=== PATIENT | female | born 1945 | race African-American/Black ===

== ENCOUNTER 2016-10-14 06:17 | Inpatient (IN) | payer MEDICARE, MEDICAID ==
[2016-10-14] MEDS ORDERED: ASPIRIN PO ONE (06:26)
[2016-10-14] MEDS ORDERED: NITROSTAT SL PRN ×2 (06:26→10:53)
[2016-10-14] MEDS ORDERED: LASIX IVP ONE (06:26)
--- NOTE | 2016-10-14 06:30 | DR.CP ---
HPI - Time Seen Time seen: 06:27 - Complaint Chief Complaint Doctor Comments: Patient complains of xiphoid chest pain onset yesterday at 7am then went away to come back this morning. Patient is complaining of xiphoid chest pain with SOB and swelling of her leg. Patient states she had problems with her her when she was in her forties when she had heart problems. States she use e-cigarettes one daily. She is a patient of Dr. Ramirez. She denies nausea, vomiting, cold or cough. States she has had a nitroglycerin x1 today. - Reviewed Nurses Notes Review: Yes - Source History Provided: Patient, EMS - Mode of Arrival Mode of Arrival: EMS - Timing Came on: Gradually Pain: Present Now - Duration Duration: Constant How lon Duration: Days - Location Location of Chest Pain: Chest Chest Pain Radiation Location: None - Context Onset: At rest Cardiac Risk Factors: HTN PE Risk Factors: None History of: Similar pain in the past, [place] Prehospital Care: [facility] - Quality Quality: Sharp - Severity Severity: Moderate - Modifying Factors Worsens: Nothing Impoves: Nothing - Associated Signs and Symptoms Associated Signs and Symptoms: Shortness of Breath, Calf Pain/Swelling PMH - PMH Past Medical History: Arthritis, COPD, CVA, Dyslipidemia, GERD, Hypertension, [place] , Renal Disease Past Surgical History: Yes Surgical History: Ortho Surgery - Family History Family Medical History: Diabetes Mellitus, Cancer, [place], Hypertension - Social History Do you use any recreational Drugs:: No ROS - Review of Systems Constitutional: No Symptoms Reported. negative: See HPI, Chills, Diaphoresis, Fever, Malaise, Weakness, Irritable, Fatigue, Loss of Appetite, Other Eyes: No Symptoms Reported ENTM: No Symptoms Reported Respiratoy: No Symptoms Reported, Non-Productive Cough, Short of Breath Cardiovascular: Chest Pain, Edema. negative: No Symptoms Reported, See HPI, Palpitations, Syncope, Cyanosis, Skin Mottling, Other Gastrointestinal/Abdominal: No Symptoms Reported. negative: See HPI, Abdominal Pain, Constipation, Diarrhea, Nausea, Vomiting, Food Intolerance, Other Genitourinary: No Symptoms Reported. negative: See HPI, Discharge, Dysuria, Frequency, Hematuria, Pain, Bleeding, Other Neurological: No Symptoms Reported, Problems Walking (right AKA). negative: See HPI, Anxiety, Depressed, Emotional Problems, Headache, Numbness, Paresthesia , Pre-existing Deficit, Seizure, Tingling, Tremors, Weakness, Dizziness, Speech Problem, Other Musculoskeletal: No Symptoms Reported Integumentary: No Symptoms Reported Hematologic/Lymphatic: No Symptoms Reported. negative: See HPI, Anemia, Blood Clots, Easy Bleeding, Easy Bruising, Swollen Glands, Lymphadenopathy, Other Endocrine: No Symptoms Reported Psychiatric: No Symptoms Reported PE - Vitals Vitals: Temperature 98.7 F Pulse Rate [Apical] 86 Pulse Rate 87 Respiratory Rate 22 Blood Pressure [Left Arm] 177/71 Blood Pressure [Right Arm] 101/69 Blood Pressure 182/86 O2 Sat by Pulse Oximetry 100 - General Limitations: No Limitations General Appearance: Alert, In Distress (moderate) - Head Head Exam: Normal Inspection, Atraumatic, Normocephalic - Eyes Eye exam: Normal Appearance, PERRL, EOMI. negative: Scleral Icterus, Conjunctival Injection, Nystagmus, Miosis, Mydrasis, Periorbital Swelling, Periorbital Tenderness, Other - ENT ENT Exam: Normal Exam, Normal Oropharynx, Normal External Ear Exam, TM's Normal Bilaterally - Chest Chest Inspection: Normal Inspection, Symmetric Chest Wall Rise - Respiratory Respiratory Exam: Normal Lung Sounds Bilat Respiratory Exam: Bilateral Clear to Auscultation - Cardiovascular Cardiovascular Exam: Regular Rate, Normal Rhythm, Normal Heart Sounds, Systolic Murmur Pulse: Normal Edema: 3, Plus, Left, Lower - Abdominal Exam Abdominal Exam: Normal Inspection, Normal Bowel Sounds, Soft - Extremities Extremities Exam: Full ROM, Edema. negative: Normal Inspection (right AKA; left leg with 2-3+ edema), Tenderness, Calf Tenderness - Back Back Exam: Normal Inspection, Full ROM - Neurologic Neurological Exam: Alert, Oriented X3, CN II-XII Intact, Reflexes Normal. negative: Normal Gait (gait not tested) - Psychiatric Psychiatric Exam: Normal Affect, Normal Mood. negative: Depressed, Agitated, Anxious, Flat Affect, Manic, Homicidal Ideation, Suicidal Ideation, Other - Skin Skin Exam: Warm, Dry, Intact, Normal Color Course - Reevaluation 1st: Improved - Consultation Called: 08:22 Call Returned: 08:22 (Dr. Maria to admit) - Education/Counseling Education/Counseling: Patient, Family Educated On: Treatment, Diagnosis, Needs for Follow Up ROR - Labs Reviewed Laboratory Results Reviewed?: Yes (all labs and x-ray results reviewed and discussed with patient) Result Diagrams: 10/14/16 07:14 10/14/16 07:14 Laboratory: WBC 12.7 X10^3/uL (3.6-10.0) H 10/14/16 07:14 RBC 3.48 X10^6/uL (3.5-5.4) L 10/14/16 07:14 Hgb 8.9 g/dL (12.0-16.0) L 10/14/16 07:14 Hct 27.0 % (36.0-47.0) L 10/14/16 07:14 MCV 77.8 fL (80.0-100.0) L 10/14/16 07:14 MCH 25.5 pg (27.0-34.0) L 10/14/16 07:14 MCHC 32.7 g/dL (33.0-35.0) L 10/14/16 07:14 RDW 15.1 % (11.6-16.5) 10/14/16 07:14 Plt Count 208 X10^3/uL (150.0-450.0) 10/14/16 07:14 Plt Count Comment Adequate (ADEQUATE) 10/14/16 07:14 MPV 9.4 fL (7.4-11.0) 10/14/16 07:14 Neut % 71.1 % (42.0-75.0) 10/14/16 07:14 Lymph % 14.5 % (21.0-51.0) L 10/14/16 07:14 [place] % 10.3 % (0.0-13.0) 10/14/16 07:14 Eos % 3.3 % (0.9-2.9) H 10/14/16 07:14 Baso % 0.8 % (0.2-1.0) 10/14/16 07:14 Neut # 9.1 x10^3/uL (2.2-4.8) H 10/14/16 07:14 Lymph # 1.8 X10^3/uL (1.3-2.9) 10/14/16 07:14 [place] # 1.3 x10^3/uL (0.3-0.8) H 10/14/16 07:14 Eos # 0.4 x10^3/uL (0.0-0.2) H 10/14/16 07:14 Baso # 0.1 X10^3/uL (0.0-0.1) 10/14/16 07:14 Absolute Nucleated RBC 0.0 /100WBC 10/14/16 07:14 Plt Morphology Comment Normal (NORMAL) 10/14/16 07:14 RBC Morphology Abnormal (NORMAL) A 10/14/16 07:14 Microcytosis Slight A 10/14/16 07:14 Spherocytes Present 10/14/16 07:14 INR Target Range - 10/14/16 07:14 INR 1.22 (0.8-1.3) 10/14/16 07:14 PTT 35.3 SECONDS (22.9-36.5) 10/14/16 07:14 PTT Comment - 10/14/16 07:14 D-Dimer 1090 ng/mL (0-400) H* 10/14/16 07:14 Sodium 145 mmol/L (136-145) 10/14/16 07:14 Corrected Sodium 145 mmol/L (136-145) 10/14/16 07:14 Potassium 5.2 mmol/L (3.5-5.1) H 10/14/16 07:14 Chloride 115 mmol/L (98-107) H* 10/14/16 07:14 Carbon Dioxide 14.6 mmol/L (21-32) L* 10/14/16 07:14 BUN 54 mg/dL (7-18) H 10/14/16 07:14 Creatinine 3.81 mg/dL (0.55-1.02) H 10/14/16 07:14 Est GFR (MDRD) Af Amer 15 (>60) L 10/14/16 07:14 Est GFR (MDRD) Non-Af 12 (>60) L 10/14/16 07:14 Glucose 120 mg/dL (65-99) H 10/14/16 07:14 Calcium 8.0 mg/dL (8.5-10.1) L 10/14/16 07:14 Corrected Calcium TNP 10/14/16 07:14 Magnesium 2.3 mg/dL (1.7-2.9) 10/14/16 07:14 Total Bilirubin 0.20 mg/dL (0.2-1.0) 10/14/16 07:14 AST 15 Units/L (15-37) 10/14/16 07:14 ALT 17 Units/L (12-78) 10/14/16 07:14 Alkaline Phosphatase 82 Units/L (46-116) 10/14/16 07:14 Creatine Kinase 88 Units/L (26-192) 10/14/16 07:14 CK-MB (CK-2) 1.2 ng/mL (0-4.0) 10/14/16 07:14 CK/CKMB % Calc 1.4 % (<4) 10/14/16 07:14 Troponin I < 0.02 ng/mL (0-1.5) 10/14/16 07:14 Total Protein 8.0 g/dL (6.4-8.2) 10/14/16 07:14 Albumin 3.4 g/dL (3.4-5.0) 10/14/16 07:14 Globulin 4.6 g/dL (2.5-4.5) H 10/14/16 07:14 Albumin/Globulin Ratio 0.7 Ratio (1.1-2.1) L 10/14/16 07:14 - XRAY XRAY Interpreted by: Radiologist - EKG Rate: 89 [place]: Normal Rhythm: NSR Block: None Hypertrophy: None ST: Nonsp - Diagnosis Discharge Problem: Chest pain, rule out acute myocardial infarction, Metabolic acidosis, Anemia, abnormal d-dimer r/o DVT, Dependent edema, Chronic kidney disease - Discharge Plan Disposition: ADMITTED INPATIENT Condition: Stable - Follow ups/Referrals Follow ups/Referrals: Markell RAMIREZ [Primary Care Provider] - 3 days - Instructions
[2016-10-14 06:37] VITALS: BMI 29.9
--- NOTE | 2016-10-14 06:40 | RAD ---
HISTORY: Pain Study: Portable chest Comparison: 04/28/2014 Findings: The heart is normal. The pulmonary vessels are normal. The lungs are hypoinflated . There is overlyi ng EKG lead and metallic artifact. No obvious consolidation or effusion can be seen. The bones are i ntact. IMPRESSION: Overlying artifact limiting the exam otherwise, stable with no acute abnormality seen. Reported By:
[2016-10-14] MEDS ORDERED: ASPIRIN ONE (06:41)
[2016-10-14] MEDS ORDERED: LASIX ONE (06:49)
[2016-10-14] MEDS ORDERED: LASIX PO ONE (06:52)
[2016-10-14 07:24] LABS: BASOPHILS # (AUTO) 0.1 X10^3/uL (0.0-0.1); BASOPHILS % (AUTO) 0.8 % (0.2-1.0); EOSINOPHILS # (AUTO) 0.4 x10^3/uL (0.0-0.2); EOSINOPHILS % (AUTO) 3.3 % (0.9-2.9); HEMOGLOBIN 8.9 g/dL (12.0-16.0); LYMPHOCYTES # (AUTO) 1.8 X10^3/uL (1.3-2.9); LYMPHOCYTES % (AUTO) 14.5 % (21.0-51.0); MEAN CORPUSCULAR HEMOGLOBIN 25.5 pg (27.0-34.0); MEAN CORPUSCULAR HGB CONC 32.7 g/dL (33.0-35.0); MEAN CORPUSCULAR VOLUME 77.8 fL (80.0-100.0); MEAN PLATELET VOLUME 9.4 fL (7.4-11.0); MONOCYTES # (AUTO) 1.3 x10^3/uL (0.3-0.8); MONOCYTES % (AUTO) 10.3 % (0.0-13.0); NEUTROPHILS # (AUTO) 9.1 x10^3/uL (2.2-4.8); NEUTROPHILS % (AUTO) 71.1 % (42.0-75.0); PLATELET COUNT 208 X10^3/uL (150.0-450.0); RED BLOOD COUNT 3.48 X10^6/uL (3.5-5.4); RED CELL DISTRIBUTION WIDTH 15.1 % (11.6-16.5); WHITE BLOOD COUNT 12.7 X10^3/uL (3.6-10.0)
[2016-10-14 07:45] LABS: ALANINE AMINOTRANSFERASE 17 Units/L (12-78); ALBUMIN 3.4 g/dL (3.4-5.0); ALKALINE PHOSPHATASE 82 Units/L (46-116); ASPARTATE AMINO TRANSFERASE 15 Units/L (15-37); BLOOD UREA NITROGEN 54 mg/dL (7-18); CKMB % 1.4 % (<4); COR NA(FOR HYPERGLY) 145 mmol/L (136-145); CREATINE KINASE 88 Units/L (26-192); CREATINE KINASE MB 1.2 ng/mL (0-4.0); CREATININE 3.81 mg/dL (0.55-1.02); GLUCOSE 120 mg/dL (65-99); MAGNESIUM 2.3 mg/dL (1.7-2.9); PLATELET MORPHOLOGY COMMENT NORMAL (NORMAL); SODIUM 145 mmol/L (136-145); TROPONIN I < 0.02 ng/mL (0-1.5); eGFR BLACK RACES 15 (>60); eGFR NON BLACK RACES 12 (>60)
[2016-10-14 07:52] LABS: MICROCYTOSIS SLIGHT; SPHEROCYTES PRESENT
[2016-10-14 07:55] LABS: CARBON DIOXIDE 14.6 mmol/L (21-32); CHLORIDE 115 mmol/L (98-107)
[2016-10-14 07:57] LABS: D DIMER 1090 ng/mL (0-400)
[2016-10-14 09:33] LABS: BILIRUBIN,URINE NEGATIVE (NEGATIVE); BLOOD/HEMOGLOBIN,URINE NEGATIVE (NEGATIVE); GLUCOSE, URINE NEGATIVE (NEGATIVE); KETONES,URINE NEGATIVE (NEGATIVE); LEUKOCYTE ESTERASE ,URINE 2+ (NEGATIVE); NITRITES,URINE POSITIVE (NEGATIVE); PROTEIN,URINE 2+ (NEGATIVE); UROBILINOGEN,URINE NORMAL (NORMAL)
[2016-10-14 09:35] LABS: APPEARANCE,URINE HAZY (CLEAR); COLOR,URINE YELLOW (YELLOW)
[2016-10-14 09:54] LABS: RBC,URINE NEGATIVE /HPF (NEGATIVE)
[2016-10-14 09:55] LABS: BACTERIA,URINE 2+ /HPF (NEGATIVE); SQUAMOUS EPITHELIAL CELL,UR FEW /HPF (NEGATIVE)
[2016-10-14] MEDS: NS 1000 ML 1,000 ML IV SCH ×3 (10:52→22:13)
[2016-10-14] MEDS ORDERED: PATIENT'S HOME MEDICATION (Baclofen [Baclofen] 1 TAB) PO PRN (10:53)
[2016-10-14] MEDS ORDERED: PATIENT'S HOME MEDICATION (Alprazolam [Xanax 1 Mg] 1 MG) PO PRN (10:55)
[2016-10-14] MEDS ORDERED: ISOSORBIDE DINITRATE 10 MG PO SCH (11:00)
[2016-10-14] MEDS ORDERED: PATIENT'S HOME MEDICATION (Losartan Potassium [Losartan Potassium] 1 TAB) PO SCH (11:00)
[2016-10-14] MEDS ORDERED: PATIENT'S HOME MEDICATION (Potassium Chloride [Klor-Con 10 (10 Meq)] 10 MEQ) PO SCH (11:00)
[2016-10-14] MEDS: NexIUM PO SCH (11:12)
[2016-10-14] MEDS: ASPIRIN 81 MG CHEWTAB PO SCH (11:12)
[2016-10-14] MEDS: NORVASC TAB 10 MG PO SCH (11:13)
[2016-10-14] MEDS: PLAVIX PO SCH (11:13)
[2016-10-14] MEDS: TENORMIN PO SCH (11:14)
[2016-10-14] MEDS: REGLAN TAB 5 MG PO SCH (11:14)
[2016-10-14 11:49] LABS: BILIRUBIN,URINE NEGATIVE (NEGATIVE); BLOOD/HEMOGLOBIN,URINE NEGATIVE (NEGATIVE); GLUCOSE, URINE NEGATIVE (NEGATIVE); KETONES,URINE NEGATIVE (NEGATIVE); LEUKOCYTE ESTERASE ,URINE 1+ (NEGATIVE); NITRITES,URINE NEGATIVE (NEGATIVE); PROTEIN,URINE NEGATIVE (NEGATIVE); UROBILINOGEN,URINE NORMAL (NORMAL)
[2016-10-14 11:56] LABS: APPEARANCE,URINE CLEAR (CLEAR); COLOR,URINE STRAW (YELLOW)
[2016-10-14 11:58] LABS: BACTERIA,URINE NEGATIVE /HPF (NEGATIVE); RBC,URINE NEGATIVE /HPF (NEGATIVE); SQUAMOUS EPITHELIAL CELL,UR NEGATIVE /HPF (NEGATIVE)
[2016-10-14] MEDS ORDERED: LIORESAL PO PRN (13:15)
[2016-10-14] MEDS: MAXZIDE 37.5/25 MG PO SCH (13:16)
[2016-10-14] MEDS ORDERED: XANAX PO PRN (13:16)
[2016-10-14 13:38] LABS: CKMB % 1.7 % (<4); CREATINE KINASE 97 Units/L (26-192); CREATINE KINASE MB 1.6 ng/mL (0-4.0); TROPONIN I < 0.02 ng/mL (0-1.5)
[2016-10-14] MEDS: NICODERM PATCH 21 MG/24 HR TD SCH (16:16)
--- NOTE | 2016-10-14 17:44 | VAS ---
HISTORY: Leg pain and swelling Study: Venous Doppler study left leg Comparison: None TECHNIQUE: Multiple valentine scale and color flow Doppler images of the deep venous system were obtaine d of the left lower extremity. FINDINGS: The deep venous system of the left lower extremity was evaluated from the level of the common femora l vein through the popliteal vein. Normal color flow and augmentation can be observed. In addition , normal compression is seen throughout the deep venous system. IMPRESSION: 1. Negative for DVT. Reported By:
[2016-10-14 19:25] LABS: CKMB % 1.4 % (<4); CREATINE KINASE 108 Units/L (26-192); CREATINE KINASE MB 1.5 ng/mL (0-4.0); TROPONIN I < 0.02 ng/mL (0-1.5)
[2016-10-14] MEDS: MICRO K EXTEN CAP 10 MEQ PO SCH (20:57)
[2016-10-14] MEDS: ZOCOR TAB 20 MG PO SCH (20:57)
[2016-10-14] MEDS: ISOSORBIDE DINITRATE PO SCH (20:57)
[2016-10-14] MEDS ORDERED: ISOSORBIDE DINITRATE PO SCH (21:00)
[2016-10-14] MEDS ORDERED: PATIENT'S HOME MEDICATION (Simvastatin [Simvastatin] 20 MG) PO SCH (21:00)
[2016-10-14] MEDS: NORCO 5/325 MG TAB PO PRN (22:17)
[2016-10-15 05:05] LABS: ALBUMIN 2.9 g/dL (3.4-5.0); CALCIUM 7.5 mg/dL (8.5-10.1); CARBON DIOXIDE 15.8 mmol/L (21-32); CHOL/HDL RATIO 3.3 (0.0-5.0); COR CA(FOR HYPOALB) 8.4 mg/dL (8.5-10.1); CREATININE 3.65 mg/dL (0.55-1.02); TOTAL PROTEIN 7.1 g/dL (6.4-8.2)
[2016-10-15 05:20] LABS: BASOPHILS % (AUTO) 0.4 % (0.2-1.0); EOSINOPHILS # (AUTO) 0.3 x10^3/uL (0.0-0.2); HEMATOCRIT 25.4 % (36.0-47.0); HEMOGLOBIN 8.2 g/dL (12.0-16.0); LYMPHOCYTES # (AUTO) 2.1 X10^3/uL (1.3-2.9); LYMPHOCYTES % (AUTO) 24.1 % (21.0-51.0); MEAN CORPUSCULAR HEMOGLOBIN 25.4 pg (27.0-34.0); MEAN CORPUSCULAR HGB CONC 32.4 g/dL (33.0-35.0); MEAN CORPUSCULAR VOLUME 78.2 fL (80.0-100.0); MEAN PLATELET VOLUME 9.5 fL (7.4-11.0); MONOCYTES % (AUTO) 11.3 % (0.0-13.0); NEUTROPHILS # (AUTO) 5.3 x10^3/uL (2.2-4.8); NEUTROPHILS % (AUTO) 61.2 % (42.0-75.0); PLATELET COUNT 211 X10^3/uL (150.0-450.0); RED BLOOD COUNT 3.25 X10^6/uL (3.5-5.4); RED CELL DISTRIBUTION WIDTH 14.8 % (11.6-16.5); WHITE BLOOD COUNT 8.7 X10^3/uL (3.6-10.0)
[2016-10-15 05:38] LABS: HYPOCHROMASIA SLIGHT; PLATELET MORPHOLOGY COMMENT NORMAL (NORMAL)
[2016-10-15] MEDS: NORCO 5/325 MG TAB PO PRN ×2 (08:04→22:14)
[2016-10-15] MEDS: NICODERM PATCH 21 MG/24 HR TD SCH (09:39)
[2016-10-15] MEDS: COZAAR PO SCH (09:40)
[2016-10-15] MEDS: NORVASC TAB 10 MG PO SCH (09:40)
[2016-10-15] MEDS: NexIUM PO SCH (09:41)
[2016-10-15] MEDS: ASPIRIN 81 MG CHEWTAB PO SCH (09:41)
[2016-10-15] MEDS: TENORMIN PO SCH (09:41)
[2016-10-15] MEDS: PLAVIX PO SCH (09:41)
[2016-10-15] MEDS: MAXZIDE 37.5/25 MG PO SCH (09:41)
[2016-10-15] MEDS: MICRO K EXTEN CAP 10 MEQ PO SCH ×2 (09:42→21:10)
[2016-10-15] MEDS: ISOSORBIDE DINITRATE PO SCH ×2 (09:42→21:10)
[2016-10-15] MEDS: REGLAN TAB 5 MG PO SCH (09:42)
--- NOTE | 2016-10-15 14:49 | NM ---
HISTORY: Elevated D-dimer, chest pain, shortness of breath Study: Ventilation-perfusion lung scan Comparison: None Technique: Ventilation scan was carried out using inhalation of 30.2 millicuries technetium 99 M DTP A aerosol. Perfusion scan was carried out using intravenous injection of 5.3 millicuries technetium 99 MAA. Findings: Ventilation scan demonstrated symmetric ventilation without significant ventilation defects. Perfusi on scan demonstrated symmetric profusion without significant perfusion defects. The probability of a cute pulmonary thromboembolic disease is felt to be low. IMPRESSION: Low probability acute pulmonary thromboembolic disease Reported By:
[2016-10-15] MEDS: NS 1000 ML 1,000 ML IV SCH (17:34)
[2016-10-15] MEDS ORDERED: COLACE CAP 100 MG PO SCH (21:00)
[2016-10-15] MEDS: ZOCOR TAB 20 MG PO SCH (21:10)
[2016-10-15] MEDS: MILK OF MAGNESIA PO SCH ×2 (21:10→21:12)
[2016-10-15] MEDS: CHECK PATCH XX SCH (21:13)
[2016-10-16 05:26] LABS: ALANINE AMINOTRANSFERASE 14 Units/L (12-78); ALBUMIN 2.9 g/dL (3.4-5.0); ALKALINE PHOSPHATASE 65 Units/L (46-116); ASPARTATE AMINO TRANSFERASE 14 Units/L (15-37); BLOOD UREA NITROGEN 47 mg/dL (7-18); CALCIUM 7.6 mg/dL (8.5-10.1); CARBON DIOXIDE 15.6 mmol/L (21-32); COR CA(FOR HYPOALB) 8.5 mg/dL (8.5-10.1); CREATININE 3.32 mg/dL (0.55-1.02); GLUCOSE 99 mg/dL (65-99); SODIUM 143 mmol/L (136-145); TOTAL PROTEIN 6.9 g/dL (6.4-8.2); eGFR BLACK RACES 18 (>60); eGFR NON BLACK RACES 15 (>60)
[2016-10-16] MEDS: NS 1000 ML 1,000 ML IV SCH (05:33)
[2016-10-16 05:36] LABS: B-TYPE NATRIURETIC PEPTIDE 52.9 pg/mL (0-79); CHLORIDE 115 mmol/L (98-107)
[2016-10-16 06:06] LABS: BASOPHILS # (AUTO) 0.1 X10^3/uL (0.0-0.1); BASOPHILS % (AUTO) 0.6 % (0.2-1.0); EOSINOPHILS # (AUTO) 0.3 x10^3/uL (0.0-0.2); EOSINOPHILS % (AUTO) 3.8 % (0.9-2.9); HEMATOCRIT 24.5 % (36.0-47.0); HEMOGLOBIN 8.1 g/dL (12.0-16.0); LYMPHOCYTES # (AUTO) 1.9 X10^3/uL (1.3-2.9); LYMPHOCYTES % (AUTO) 20.6 % (21.0-51.0); MEAN CORPUSCULAR HEMOGLOBIN 25.7 pg (27.0-34.0); MEAN CORPUSCULAR VOLUME 77.9 fL (80.0-100.0); MEAN PLATELET VOLUME 9.7 fL (7.4-11.0); MONOCYTES % (AUTO) 10.9 % (0.0-13.0); NEUTROPHILS # (AUTO) 5.9 x10^3/uL (2.2-4.8); NEUTROPHILS % (AUTO) 64.1 % (42.0-75.0); PLATELET COUNT 200 X10^3/uL (150.0-450.0); RED BLOOD COUNT 3.15 X10^6/uL (3.5-5.4); RED CELL DISTRIBUTION WIDTH 15.2 % (11.6-16.5); WHITE BLOOD COUNT 9.2 X10^3/uL (3.6-10.0)
[2016-10-16 06:47] LABS: HYPOCHROMASIA SLIGHT; PLATELET MORPHOLOGY COMMENT NORMAL (NORMAL)
[2016-10-16] MEDS: ISOSORBIDE DINITRATE PO SCH (09:27)
[2016-10-16] MEDS: ASPIRIN 81 MG CHEWTAB PO SCH (09:27)
[2016-10-16] MEDS: NexIUM PO SCH (09:27)
[2016-10-16] MEDS: NORVASC TAB 10 MG PO SCH (09:27)
[2016-10-16] MEDS: NORCO 5/325 MG TAB PO PRN (09:28)
[2016-10-16] MEDS: MAXZIDE 37.5/25 MG PO SCH (09:28)
[2016-10-16] MEDS: TENORMIN PO SCH (09:29)
[2016-10-16] MEDS: NICODERM PATCH 21 MG/24 HR TD SCH (09:30)
[2016-10-16] MEDS: COZAAR PO SCH (09:32)
[2016-10-16] MEDS: PLAVIX PO SCH (09:34)
[2016-10-16] MEDS: REGLAN TAB 5 MG PO SCH (09:34)
[2016-10-16] MEDS: MICRO K EXTEN CAP 10 MEQ PO SCH (09:35)
[2016-10-16] MEDS: CHECK PATCH XX SCH (09:36)
[2016-10-16 12:54] VITALS: BP 137/67
== END 2016-10-16 13:55 | disposition home or self-care (01) | DRG 313 ==
LOC: ER 06:17 → MED/SURG 08:30
PROVIDERS: ADMIT Obstetrics & Gynecology Obstetrics; ATTEND Internal Medicine
DX: R07.89 Other chest pain (principal); R06.02 Shortness of breath; R60.0 Localized edema; M13.89 Other specified arthritis, multiple sites; E78.2 Mixed hyperlipidemia; I12.9 Hypertensive chronic kidney disease with stage 1 through stage 4 chronic kidney disease, or unspecified chronic kidney disease; D64.89 Other specified anemias; R79.1 Abnormal coagulation profile; N18.9 Chronic kidney disease, unspecified; R94.31 Abnormal electrocardiogram [ECG] [EKG]; B96.29 Other Escherichia coli [E. coli] as the cause of diseases classified elsewhere
CPT/HCPCS: 36415; 51702; 71010; 78582; 80053; 80061; 81001; 82550; 82553; 83735; 83880; 84484; 85025; 85378; 85610; 85730; 87086; 87088; 87186; 93005; 93010; 93971; 94760; 96365; 99284; A4216; A4222

== ENCOUNTER 2016-10-17 00:52 | Emergency (ER) | payer OTHER, MEDICAID ==
[2016-10-17] MEDS ORDERED: CATAPRES TAB 0.1 MG ONE (01:01)
[2016-10-17 01:05] VITALS: BMI 29.4
--- NOTE | 2016-10-17 01:25 | DR.GENAD ---
HPI - PCP Primary Care Physician: JAMES - Complaint/Symptoms Chief Complaint Doctors Comments: Patient was hospitalized for chest pain cardiac work up negative. Presents wiwth c/o mid sternal chest pain. She states that she takes nexium for heart burn. She has a history of prerenal failure. Chief Complaint:: CP PT WAS RELEASED FROM HOSPITAL YESTERDAY - Source History Provided: Patient - Mode of Arrival Mode of Arrival: EMS - Timing Onset of Chief Complaint: 10/17/16 PMH - PMH Past Medical History: Yes Past Medical History: Arthritis, COPD, CVA, Dyslipidemia, GERD, Hypertension, [place] , Renal Disease Past Surgical History: Yes Surgical History: Ortho Surgery, Other - Family History History of Family Medical Conditions: Yes Family Medical History: Diabetes Mellitus, Cancer, [place], Hypertension - Social History Type of Tobacco Use: Cigarettes Does any household member use tobacco: Yes Alcohol Use: Rarely Do you use any recreational Drugs:: No Lives With: Family Lives Where: Home - infectious screening In the last 2 months have you had wt loss of >10#?: NO Have you had fever, night sweats or hemotysis?: No Have you traveled outside the country in the last 6 months?: No Isolation: Standard ROS - Review of Systems Eyes: No Symptoms Reported ENTM: No Symptoms Reported Respiratoy: No Symptoms Reported Cardiovascular: No Symptoms Reported Gastrointestinal/Abdominal: No Symptoms Reported Genitourinary: No Symptoms Reported Neurological: No Symptoms Reported Musculoskeletal: No Symptoms Reported Integumentary: No Symptoms Reported Hematologic/Lymphatic: No Symptoms Reported Endocrine: No Symptoms Reported Psychiatric: No Symptoms Reported All Other Systems: Reviewed and Negative PE - Vital Signs Vitals: Temperature 98.6 F Pulse Rate [Apical] 85 Pulse Rate 92 Respiratory Rate 23 Blood Pressure [Left Arm] 160/73 Blood Pressure [Right Arm] 101/69 Blood Pressure 197/97 O2 Sat by Pulse Oximetry 98 - General Limitations: No Limitations General Appearance: Alert, In No Apparent Distress - Head Head Exam: Normal Inspection, Atraumatic - Eyes Eye exam: Normal Appearance, PERRL, Scleral Icterus - ENT ENT Exam: Normal Exam External Ear Exam: Normal External Inspection TM/Canal Exam: Bilateral Normal Nose Exam: Normal Nose Exam Mouth Exam: Normal Inspection Throat Exam: Normal Inspection - Neck Neck Exam: Normal Inspection - Chest Chest Inspection: Normal Inspection - Respiratory Respiratory Exam: Normal Lung Sounds Bilat Respiratory Exam: Bilateral Clear to Auscultation - Cardiovascular Cardiovascular Exam: Regular Rate, Normal Rhythm - Abdominal Exam Abdominal Exam: Normal Inspection, Normal Bowel Sounds Abdominal Tenderness: Epigastrium. negative: RUQ, RLQ, LUQ, LLQ, Suprapubic, Diffuse, Mild, Moderate, Severe, Other - Extremities Extremities Exam: Other (right adin-paresis) - Back Back Exam: Normal Inspection - Neurologic Neurological Exam: Alert, Oriented X3, CN II-XII Intact - Psychiatric Psychiatric Exam: Normal Affect, Normal Mood - Skin Skin Exam: Warm, Dry Course - Reevaluation 1st: Improved ROR - Labs Reviewed Laboratory Results Reviewed?: Yes Result Diagrams: 10/17/16 01:30 10/17/16 01:30 Laboratory: WBC 12.0 X10^3/uL (3.6-10.0) H 10/17/16 01:30 RBC 3.60 X10^6/uL (3.5-5.4) 10/17/16 01:30 Hgb 9.0 g/dL (12.0-16.0) L 10/17/16 01:30 Hct 27.9 % (36.0-47.0) L 10/17/16 01:30 MCV 77.5 fL (80.0-100.0) L 10/17/16 01:30 MCH 24.8 pg (27.0-34.0) L 10/17/16 01:30 MCHC 32.0 g/dL (33.0-35.0) L 10/17/16 01:30 RDW 15.3 % (11.6-16.5) 10/17/16 01:30 Plt Count 216 X10^3/uL (150.0-450.0) 10/17/16 01:30 Plt Count Comment Adequate (ADEQUATE) 10/17/16 01:30 MPV 9.1 fL (7.4-11.0) 10/17/16 01:30 Neut % 75.8 % (42.0-75.0) H 10/17/16 01:30 Lymph % 11.7 % (21.0-51.0) L 10/17/16 01:30 [place] % 8.1 % (0.0-13.0) 10/17/16 01:30 Eos % 3.6 % (0.9-2.9) H 10/17/16 01:30 Baso % 0.8 % (0.2-1.0) 10/17/16 01:30 Neut # 9.1 x10^3/uL (2.2-4.8) H 10/17/16 01:30 Lymph # 1.4 X10^3/uL (1.3-2.9) 10/17/16 01:30 [place] # 1.0 x10^3/uL (0.3-0.8) H 10/17/16 01:30 Eos # 0.4 x10^3/uL (0.0-0.2) H 10/17/16 01:30 Baso # 0.1 X10^3/uL (0.0-0.1) 10/17/16 01:30 Absolute Nucleated RBC 0.1 /100WBC 10/17/16 01:30 Plt Morphology Comment Normal (NORMAL) 10/17/16 01:30 RBC Morphology Abnormal (NORMAL) A 10/17/16 01:30 Hypochromasia Slight A 10/17/16 01:30 Microcytosis Slight A 10/17/16 01:30 INR Target Range - 10/17/16 01:30 INR 1.15 (0.8-1.3) 10/17/16 01:30 Sodium 142 mmol/L (136-145) 10/17/16 01:30 Corrected Sodium 143 mmol/L (136-145) 10/17/16 01:30 Potassium 5.2 mmol/L (3.5-5.1) H 10/17/16 01:30 Chloride 113 mmol/L (98-107) H 10/17/16 01:30 Carbon Dioxide 16.2 mmol/L (21-32) L 10/17/16 01:30 BUN 45 mg/dL (7-18) H 10/17/16 01:30 Creatinine 3.35 mg/dL (0.55-1.02) H 10/17/16 01:30 Est GFR (MDRD) Af Amer 17 (>60) L 10/17/16 01:30 Est GFR (MDRD) Non-Af 14 (>60) L 10/17/16 01:30 Glucose 129 mg/dL (65-99) H 10/17/16 01:30 Calcium 8.0 mg/dL (8.5-10.1) L 10/17/16 01:30 Corrected Calcium TNP 10/17/16 01:30 Total Bilirubin 0.20 mg/dL (0.2-1.0) 10/17/16 01:30 AST 16 Units/L (15-37) 10/17/16 01:30 ALT 18 Units/L (12-78) 10/17/16 01:30 Alkaline Phosphatase 82 Units/L (46-116) 10/17/16 01:30 Creatine Kinase 221 Units/L (26-192) H 10/17/16 01:30 CK-MB (CK-2) 1.5 ng/mL (0-4.0) 10/17/16 01:30 CK/CKMB % Calc 0.7 % (<4) 10/17/16 01:30 Troponin I < 0.02 ng/mL (0-1.5) 10/17/16 01:30 Total Protein 8.3 g/dL (6.4-8.2) H 10/17/16 01:30 Albumin 3.4 g/dL (3.4-5.0) 10/17/16 01:30 Globulin 4.9 g/dL (2.5-4.5) H 10/17/16 01:30 Albumin/Globulin Ratio 0.7 Ratio (1.1-2.1) L 10/17/16 01:30 H. pylori IgG Antibody Negative (NEGATIVE) 10/17/16 01:30 - XRAY XRAY Interpreted by: Radiologist (Chest: The lungs are clear and the lung volumes are within normal limits. No pleural or pneumothorax. The cardiac silhouette and mediastinum are normal. The regional skeleton is intact. Impression: No acute abnormality identified) - Diagnosis Discharge Problem: Hyperkalemia Chest pain Qualifiers: Chest pain type: unspecified Qualified Code(s): R07.9 - Chest pain, unspecified - Discharge Plan Condition: Stable - Follow ups/Referrals Follow ups/Referrals: Markell RAMIREZ [Primary Care Provider] - 3 days - Instructions
[2016-10-17 01:36] LABS: BASOPHILS # (AUTO) 0.1 X10^3/uL (0.0-0.1); BASOPHILS % (AUTO) 0.8 % (0.2-1.0); EOSINOPHILS # (AUTO) 0.4 x10^3/uL (0.0-0.2); EOSINOPHILS % (AUTO) 3.6 % (0.9-2.9); HEMATOCRIT 27.9 % (36.0-47.0); LYMPHOCYTES # (AUTO) 1.4 X10^3/uL (1.3-2.9); LYMPHOCYTES % (AUTO) 11.7 % (21.0-51.0); MEAN CORPUSCULAR HEMOGLOBIN 24.8 pg (27.0-34.0); MEAN CORPUSCULAR VOLUME 77.5 fL (80.0-100.0); MEAN PLATELET VOLUME 9.1 fL (7.4-11.0); MONOCYTES % (AUTO) 8.1 % (0.0-13.0); NEUTROPHILS # (AUTO) 9.1 x10^3/uL (2.2-4.8); NEUTROPHILS % (AUTO) 75.8 % (42.0-75.0); PLATELET COUNT 216 X10^3/uL (150.0-450.0); RED CELL DISTRIBUTION WIDTH 15.3 % (11.6-16.5)
[2016-10-17 01:47] LABS: HYPOCHROMASIA SLIGHT; MICROCYTOSIS SLIGHT; PLATELET MORPHOLOGY COMMENT NORMAL (NORMAL)
[2016-10-17 01:54] LABS: BLOOD UREA NITROGEN 45 mg/dL (7-18); CARBON DIOXIDE 16.2 mmol/L (21-32); CHLORIDE 113 mmol/L (98-107); COR NA(FOR HYPERGLY) 143 mmol/L (136-145); CREATININE 3.35 mg/dL (0.55-1.02); GLUCOSE 129 mg/dL (65-99); SODIUM 142 mmol/L (136-145); TROPONIN I < 0.02 ng/mL (0-1.5); eGFR BLACK RACES 17 (>60); eGFR NON BLACK RACES 14 (>60)
[2016-10-17 01:59] LABS: ALANINE AMINOTRANSFERASE 18 Units/L (12-78); ALBUMIN 3.4 g/dL (3.4-5.0); ALKALINE PHOSPHATASE 82 Units/L (46-116); ASPARTATE AMINO TRANSFERASE 16 Units/L (15-37); CKMB % 0.7 % (<4); CREATINE KINASE 221 Units/L (26-192); CREATINE KINASE MB 1.5 ng/mL (0-4.0); TOTAL PROTEIN 8.3 g/dL (6.4-8.2)
--- NOTE | 2016-10-17 02:23 | RAD ---
EXAM: Chest X-ray INDICATION: Chest pain COMPARISION: Prior exam from October 14, 2016 TECHNIQUE: Single view FINDINGS: The lungs are clear and the lung volumes are within normal limits. No pleural effusion or pneumothor ax. The cardiac silhouette and mediastinum are normal. The regional skeleton is intact. IMPRESSION: No acute abnormality identified Reported By:
[2016-10-17] MEDS ORDERED: DUONEB 0.5 MG/3 MG NEB ONE (02:41)
[2016-10-17] MEDS ORDERED: PROVENTIL NEB TX 0.083% 2.5MG/ 3ML NEB ONE (02:43)
[2016-10-17] MEDS ORDERED: PROVENTIL NEB TX 0.083% 2.5MG/ 3ML ONE (02:45)
[2016-10-17 03:14] VITALS: BP 157/76
== END 2016-10-17 03:22 | disposition home or self-care (01) ==
LOC: ER 00:52
DX: R07.89 Other chest pain (principal); E87.5 Hyperkalemia
CPT/HCPCS: 36415; 71010; 80053; 82550; 82553; 84484; 85025; 85610; 86677; 93005; 93010; 94640; 96365; 99283; A4222; J7613

== ENCOUNTER 2016-10-25 17:28 | Emergency (ER) | payer OTHER, MEDICAID ==
[2016-10-25 17:42] VITALS: BMI 33.3
[2016-10-25] MEDS ORDERED: DUONEB 0.5 MG/3 MG ONE (17:54)
--- NOTE | 2016-10-25 18:05 | RAD ---
HISTORY: Shortness of breath, congestion. Study: Portable chest. Comparison: Chest x-ray dated October 17, 2016. Findings: Study slightly limited secondary to objects obscuring the right costophrenic angle. The trachea is midline. The cardiac silhouette is unremarkable. The lungs are clear without focal infiltrate or effusion. The bony thorax is unremarkable. IMPRESSION: 1. No acute cardiopulmonary disease. Reported By:
--- NOTE | 2016-10-25 18:06 | DR.SOBA ---
HPI - Time Seen Time seen: 17:40 - HPI Comment HPI Comment: Pt c/o SOB aand cough but no fever and no chest pain. - Complaints Chief Complaint Doctors Comments: "SOB" Chief Complaint:: EMS OUT TO CHEST PAIN FOR CHEST PAIN AND SOB... PT DENIES ANY SOB AND SHE STATES " I JUST CAN'T GET A GOOD BREATHE"... - Reviewed Nurses Notes Reviewed: Yes - Source History Provided: Patient, EMS - Mode of Arrival Mode of Arrival: EMS - Timing Onset of Chief Complaint: 10/18/16 - Duration Duration: Unknown - Context Onset:: At Rest PE Risk Factors:: Immobilization History of:: COPD Currently on:: Inhaled Bronchodilators Prehospital Care:: None - Modifying Factors Worsens:: Lying Flat Improves:: Nothing - Associated Signs and Symptoms Associated Signs and Symptoms: Cough - If Cough Cough: Nonproductive PMH - PMH Past Medical History: Yes Past Medical History: Arthritis, COPD, CVA, Dyslipidemia, GERD, Hypertension, [place] , Renal Disease Past Medical History Comment: LEFT BKA Past Surgical History: Yes Surgical History: Ortho Surgery, Other - Family History History of Family Medical Conditions: Yes Family Medical History: Diabetes Mellitus, Cancer, [place], Hypertension - Social History Does patient currently use any type of tobacco product: No Have you used tobacco products in the last 12 months: No Type of Tobacco Use: None Does any household member use tobacco: No Alcohol Use: None Do you use any recreational Drugs:: No Lives With: Family Lives Where: Home - infectious screening In the last 2 months have you had wt loss of >10#?: NO Have you had fever, night sweats or hemotysis?: No Have you traveled outside the country in the last 6 months?: No Isolation: Standard ROS - Review of Systems Constitutional: No Symptoms Reported Respiratoy: Non-Productive Cough, Short of Breath Cardiovascular: No Symptoms Reported Gastrointestinal/Abdominal: No Symptoms Reported Genitourinary: No Symptoms Reported Neurological: No Symptoms Reported Musculoskeletal: No Symptoms Reported Integumentary: No Symptoms Reported Hematologic/Lymphatic: No Symptoms Reported Endocrine: No Symptoms Reported Psychiatric: No Symptoms Reported All Other Systems: Reviewed and Negative PE - Vital Signs Vitals: Temperature 98.1 F Pulse Rate 75 Respiratory Rate 20 Blood Pressure [Left Arm] 157/76 Blood Pressure [Right Arm] 101/69 Blood Pressure 131/69 O2 Sat by Pulse Oximetry 100 - General Limitations: No Limitations General Appearance: Alert, In No Apparent Distress - Neck Neck Exam: Normal Inspection, Full ROM, Trachea Midline - Chest Chest Inspection: Normal Inspection - Respiratory Respiratory Exam: Bilateral Rales - Cardiovascular Cardiovascular Exam: Regular Rate, Normal Rhythm, Normal Heart Sounds - Abdominal Exam Abdominal Exam: Normal Inspection, Normal Bowel Sounds, Soft - Extremities Extremities Exam: Normal Inspection, Full ROM - Back Back Exam: Normal Inspection, Full ROM - Neurologic Neurological Exam: Alert, Oriented X3, CN II-XII Intact - Psychiatric Psychiatric Exam: Normal Affect, Normal Mood - Skin Skin Exam: Warm, Dry, Intact, Normal Color [facility] - Differential Diagnosis Differential Diagnosis: Anxiety, Bronchitis, CHF, URI ROR - Labs Reviewed Result Diagrams: 10/25/16 18:03 10/25/16 18:03 Laboratory: WBC 8.1 X10^3/uL (3.6-10.0) 10/25/16 18:03 RBC 3.28 X10^6/uL (3.5-5.4) L 10/25/16 18:03 Hgb 8.2 g/dL (12.0-16.0) L 10/25/16 18:03 Hct 25.6 % (36.0-47.0) L 10/25/16 18:03 MCV 77.9 fL (80.0-100.0) L 10/25/16 18:03 MCH 25.1 pg (27.0-34.0) L 10/25/16 18:03 MCHC 32.3 g/dL (33.0-35.0) L 10/25/16 18:03 RDW 14.5 % (11.6-16.5) 10/25/16 18:03 Plt Count 249 X10^3/uL (150.0-450.0) 10/25/16 18:03 Plt Count Comment Adequate (ADEQUATE) 10/25/16 18:03 MPV 8.4 fL (7.4-11.0) 10/25/16 18:03 Neut % 72.6 % (42.0-75.0) 10/25/16 18:03 Lymph % 15.1 % (21.0-51.0) L 10/25/16 18:03 [place] % 7.6 % (0.0-13.0) 10/25/16 18:03 Eos % 4.2 % (0.9-2.9) H 10/25/16 18:03 Baso % 0.5 % (0.2-1.0) 10/25/16 18:03 Neut # 5.9 x10^3/uL (2.2-4.8) H 10/25/16 18:03 Lymph # 1.2 X10^3/uL (1.3-2.9) L 10/25/16 18:03 [place] # 0.6 x10^3/uL (0.3-0.8) 10/25/16 18:03 Eos # 0.3 x10^3/uL (0.0-0.2) H 10/25/16 18:03 Baso # 0.0 X10^3/uL (0.0-0.1) 10/25/16 18:03 Absolute Nucleated RBC 0.0 /100WBC 10/25/16 18:03 Plt Morphology Comment Normal (NORMAL) 10/25/16 18:03 RBC Morphology Abnormal (NORMAL) A 10/25/16 18:03 Hypochromasia Slight A 10/25/16 18:03 Sodium 138 mmol/L (136-145) 10/25/16 18:03 Corrected Sodium TNP 10/25/16 18:03 Potassium 7.3 mmol/L (3.5-5.1) H* 10/25/16 18:03 Chloride 110 mmol/L (98-107) H 10/25/16 18:03 Carbon Dioxide 14.4 mmol/L (21-32) L* 10/25/16 18:03 BUN 72 mg/dL (7-18) H 10/25/16 18:03 Creatinine 6.65 mg/dL (0.55-1.02) H 10/25/16 18:03 Est GFR (MDRD) Af Amer 8 (>60) L 10/25/16 18:03 Est GFR (MDRD) Non-Af 7 (>60) L 10/25/16 18:03 Glucose 84 mg/dL (65-99) 10/25/16 18:03 Calcium 8.0 mg/dL (8.5-10.1) L 10/25/16 18:03 Corrected Calcium TNP 10/25/16 18:03 Total Bilirubin 0.20 mg/dL (0.2-1.0) 10/25/16 18:03 AST 19 Units/L (15-37) 10/25/16 18:03 ALT 17 Units/L (12-78) 10/25/16 18:03 Alkaline Phosphatase 71 Units/L (46-116) 10/25/16 18:03 Total Protein 7.6 g/dL (6.4-8.2) 10/25/16 18:03 Albumin 3.5 g/dL (3.4-5.0) 10/25/16 18:03 Globulin 4.1 g/dL (2.5-4.5) 10/25/16 18:03 Albumin/Globulin Ratio 0.9 Ratio (1.1-2.1) L 10/25/16 18:03 - Diagnosis Discharge Problem: SOB (shortness of breath), Severe peripheral arterial disease Acute renal failure Qualifiers: Acute renal failure type: unspecified Qualified Code(s): N17.9 - Acute kidney failure, unspecified - Discharge Plan Disposition: XFER OTHER Condition: Stable - Follow ups/Referrals Follow ups/Referrals: NFD,None [Primary Care Provider] - 3 days - Instructions Instructions: Chronic Obstructive Pulmonary Disease Exacerbation, [id number] Additional Instructions: I spoke with Dr. Roa at [facility] in [place] and he informed me that his facility was on diversion for critical patients . I also spoke with Dr Casper at [facility] in [place] and she agrees to accept this patient in transfer.
[2016-10-25] MEDS ORDERED: SOLU-Medrol 125 MG VIAL IVP ONE (18:09)
[2016-10-25] MEDS ORDERED: DUONEB 0.5 MG/3 MG NEB ONE (18:10)
[2016-10-25 18:26] LABS: ALANINE AMINOTRANSFERASE 17 Units/L (12-78); ALBUMIN 3.5 g/dL (3.4-5.0); ALKALINE PHOSPHATASE 71 Units/L (46-116); ASPARTATE AMINO TRANSFERASE 19 Units/L (15-37); BLOOD UREA NITROGEN 72 mg/dL (7-18); CHLORIDE 110 mmol/L (98-107); CREATININE 6.65 mg/dL (0.55-1.02); GLUCOSE 84 mg/dL (65-99); SODIUM 138 mmol/L (136-145); TOTAL PROTEIN 7.6 g/dL (6.4-8.2); eGFR BLACK RACES 8 (>60); eGFR NON BLACK RACES 7 (>60)
[2016-10-25 18:41] LABS: CARBON DIOXIDE 14.4 mmol/L (21-32)
[2016-10-25] MEDS ORDERED: SOLU-Medrol 125 MG VIAL ONE (18:46)
[2016-10-25] MEDS ORDERED: KAYEXALATE PO ONE (18:53)
[2016-10-25 18:57] LABS: BASOPHILS % (AUTO) 0.5 % (0.2-1.0); EOSINOPHILS # (AUTO) 0.3 x10^3/uL (0.0-0.2); EOSINOPHILS % (AUTO) 4.2 % (0.9-2.9); HEMATOCRIT 25.6 % (36.0-47.0); HEMOGLOBIN 8.2 g/dL (12.0-16.0); LYMPHOCYTES # (AUTO) 1.2 X10^3/uL (1.3-2.9); LYMPHOCYTES % (AUTO) 15.1 % (21.0-51.0); MEAN CORPUSCULAR HEMOGLOBIN 25.1 pg (27.0-34.0); MEAN CORPUSCULAR HGB CONC 32.3 g/dL (33.0-35.0); MEAN CORPUSCULAR VOLUME 77.9 fL (80.0-100.0); MEAN PLATELET VOLUME 8.4 fL (7.4-11.0); MONOCYTES # (AUTO) 0.6 x10^3/uL (0.3-0.8); MONOCYTES % (AUTO) 7.6 % (0.0-13.0); NEUTROPHILS # (AUTO) 5.9 x10^3/uL (2.2-4.8); NEUTROPHILS % (AUTO) 72.6 % (42.0-75.0); PLATELET COUNT 249 X10^3/uL (150.0-450.0); RED BLOOD COUNT 3.28 X10^6/uL (3.5-5.4); RED CELL DISTRIBUTION WIDTH 14.5 % (11.6-16.5); WHITE BLOOD COUNT 8.1 X10^3/uL (3.6-10.0)
[2016-10-25 19:07] LABS: HYPOCHROMASIA SLIGHT; PLATELET MORPHOLOGY COMMENT NORMAL (NORMAL)
[2016-10-25] MEDS ORDERED: KAYEXALATE ONE (19:34)
--- NOTE | 2016-10-25 20:11 | RAD ---
HISTORY: 71-year-old female with shortness of breath. Study: Frontal view of the chest. Comparison: Chest radiographs this date and October 17, 2016 Findings: The trachea is midline. The cardiac silhouette is stably enlarged with low lung volumes and mild pu lmonary edema with no focal consolidation or effusion/pneumothorax. Chronic prominent interstitium. The lungs are clear without focal consolidation, effusion or pneumothorax. Soft tissues are unremar kable. Osseous structures are unremarkable. IMPRESSION: 1. Cardiomegaly with mild pulmonary edema. Reported By:
[2016-10-25 20:57] VITALS: BP 153/67
== END 2016-10-25 21:00 | disposition short-term general hospital (02) ==
LOC: ER 17:36
DX: N17.9 Acute kidney failure, unspecified (principal); R06.02 Shortness of breath; I51.7 Cardiomegaly; J81.1 Chronic pulmonary edema
CPT/HCPCS: 36415; 71010; 80053; 85025; 93005; 93010; 94640; 96365; 96374; 99284; 99285; A4222; J2930; J7620

== ENCOUNTER 2016-12-26 05:22 | Emergency (ER) | payer OTHER, MEDICAID ==
[2016-12-26 05:41] VITALS: BMI 29.4
--- NOTE | 2016-12-26 05:52 | DR.CP ---
HPI - Time Seen Time seen: 06:00 - PCP Primary Care Physician: JAMES - HPI Comment HPI Comment: PAIN SPONTANOUSLY RESOLVE WHILE BEING TRIAGE. DENIES FEVER OR PERSISTENT COUGH. - Complaint Chief Complaint Doctor Comments: SUBSTERNAL CHEST PAIN WITH SOB TIMES 45MINS Chief Complaint:: CHEST PAIN O/S THIS AM APPROX 45 MINS AGO. SHORTNESS OF BREATH. - Reviewed Nurses Notes Review: Yes - Source History Provided: Patient, EMS - Mode of Arrival Mode of Arrival: EMS - Timing Onset of Chief Complaint: 12/26/16 Came on: Suddenly - Duration Duration: Since Onset Duration: Hours - Location Location of Chest Pain: Chest (SUNSTERNAL CHEST PAIN) Chest Pain Radiation Location: None - Context Onset: At rest Cardiac Risk Factors: Hyperlipidemia, HTN PE Risk Factors: None History of: Similar pain in the past Prehospital Care: Oxygen - Quality Quality: Sharp (SUBSTERNAL PAIN.) - Severity Severity: Moderate - Modifying Factors Worsens: Nothing Impoves: Nothing - Associated Signs and Symptoms Associated Signs and Symptoms: Shortness of Breath PMH - PMH Past Medical History: Yes Past Medical History: Arthritis, COPD, CVA, Dyslipidemia, GERD, Hypertension, [place] , Renal Disease Past Medical History Comment: RIGHT ABOVE THE KNEE AMPUTEE Past Surgical History: Yes Surgical History: Ortho Surgery, Other - Family History History of Family Medical Conditions: Yes Family Medical History: Diabetes Mellitus, Cancer, [place], Hypertension - Social History Does patient currently use any type of tobacco product: No Have you used tobacco products in the last 12 months: No Type of Tobacco Use: None Does any household member use tobacco: No Alcohol Use: None Do you use any recreational Drugs:: No Lives With: Family Lives Where: Home - infectious screening Have you traveled outside the country in the last 6 months?: No Isolation: Standard ROS - Review of Systems Constitutional: No Symptoms Reported Eyes: No Symptoms Reported ENTM: No Symptoms Reported Respiratoy: Short of Breath. negative: Productive Cough, Non-Productive Cough, Wheezing, Hemoptysis Cardiovascular: Chest Pain. negative: Edema Gastrointestinal/Abdominal: No Symptoms Reported. negative: Abdominal Pain, Constipation, Diarrhea, Nausea, Vomiting Genitourinary: negative: Dysuria, Frequency, Hematuria Neurological: No Symptoms Reported Musculoskeletal: Muscle Pain, Other (AV SHUNT LT ABOVE LT AC.) Integumentary: No Symptoms Reported Hematologic/Lymphatic: No Symptoms Reported Endocrine: No Symptoms Reported All Other Systems: Reviewed and Negative PE - Vitals Vitals: Temperature 98.3 F Pulse Rate [Apical] 94 Pulse Rate 100 Respiratory Rate 19 Blood Pressure [Left Arm] 153/67 Blood Pressure [Right Arm] 104/67 Blood Pressure 125/76 O2 Sat by Pulse Oximetry 100 - General Limitations: No Limitations General Appearance: Alert - Head Head Exam: Normal Inspection - Eyes Eye exam: Normal Appearance - ENT ENT Exam: Normal External Ear Exam - Chest Chest Inspection: Symmetric Chest Wall Rise - Respiratory Respiratory Exam: Normal Lung Sounds Bilat Respiratory Exam: Bilateral Clear to Auscultation - Cardiovascular Cardiovascular Exam: Regular Rate, Normal Rhythm, Normal Heart Sounds Pulse: Normal, Radial, Femoral Edema: Normal - Abdominal Exam Abdominal Exam: Normal Bowel Sounds, Soft. negative: Tenderness - Extremities Extremities Exam: Other (AV SHUNT ABOVE LT AC.) - Back Back Exam: Normal Inspection - Neurologic Neurological Exam: Alert, Oriented X3 - Psychiatric Psychiatric Exam: Normal Affect, Normal Mood - Skin Skin Exam: Normal Color MDM - Differential Diagnosis Differential Diagnosis: Angina, Myocardial Infarction, Pericarditis, Pleuritis, Pancreatitis, Pneumonia, Pneumothorax, Pulmonary Embolus Course - Treatment Treatment: SEE ORDER. - Reevaluation 1st: Improved - Education/Counseling Education/Counseling: Patient, Education Educated On: Diagnosis, Needs for Follow Up ROR - Labs Reviewed Laboratory Results Reviewed?: Yes Result Diagrams: 12/26/16 06:20 12/26/16 06:20 Laboratory: WBC 11.9 X10^3/uL (3.6-10.0) H 12/26/16 06:20 RBC 4.19 X10^6/uL (3.5-5.4) 12/26/16 06:20 Hgb 10.6 g/dL (12.0-16.0) L 12/26/16 06:20 Hct 32.7 % (36.0-47.0) L 12/26/16 06:20 MCV 78.1 fL (80.0-100.0) L 12/26/16 06:20 MCH 25.4 pg (27.0-34.0) L 12/26/16 06:20 MCHC 32.5 g/dL (33.0-35.0) L 12/26/16 06:20 RDW 16.5 % (11.6-16.5) 12/26/16 06:20 Plt Count 279 X10^3/uL (150.0-450.0) 12/26/16 06:20 Plt Count Comment Adequate (ADEQUATE) 12/26/16 06:20 MPV 8.6 fL (7.4-11.0) 12/26/16 06:20 Neut % 77.3 % (42.0-75.0) H 12/26/16 06:20 Lymph % 8.6 % (21.0-51.0) L 12/26/16 06:20 [place] % 10.8 % (0.0-13.0) 12/26/16 06:20 Eos % 2.3 % (0.9-2.9) 12/26/16 06:20 Baso % 1.0 % (0.2-1.0) 12/26/16 06:20 Neut # 9.2 x10^3/uL (2.2-4.8) H 12/26/16 06:20 Lymph # 1.0 X10^3/uL (1.3-2.9) L 12/26/16 06:20 [place] # 1.3 x10^3/uL (0.3-0.8) H 12/26/16 06:20 Eos # 0.3 x10^3/uL (0.0-0.2) H 12/26/16 06:20 Baso # 0.1 X10^3/uL (0.0-0.1) 12/26/16 06:20 Absolute Nucleated RBC 0.0 /100WBC 12/26/16 06:20 Plt Morphology Comment Normal (NORMAL) 12/26/16 06:20 RBC Morphology Normal (NORMAL) 12/26/16 06:20 Sodium 137 mmol/L (136-145) 12/26/16 06:20 Corrected Sodium 138 mmol/L (136-145) 12/26/16 06:20 Potassium 3.6 mmol/L (3.5-5.1) 12/26/16 06:20 Chloride 101 mmol/L (98-107) 12/26/16 06:20 Carbon Dioxide 25.4 mmol/L (21-32) 12/26/16 06:20 BUN 15 mg/dL (7-18) 12/26/16 06:20 Creatinine 3.76 mg/dL (0.55-1.02) H 12/26/16 06:20 Est GFR (MDRD) Af Amer 15 (>60) L 12/26/16 06:20 Est GFR (MDRD) Non-Af 13 (>60) L 12/26/16 06:20 Glucose 145 mg/dL (65-99) H 12/26/16 06:20 Calcium 8.9 mg/dL (8.5-10.1) 12/26/16 06:20 Corrected Calcium 9.6 mg/dL (8.5-10.1) 12/26/16 06:20 Total Bilirubin 0.20 mg/dL (0.2-1.0) 12/26/16 06:20 AST 18 Units/L (15-37) 12/26/16 06:20 ALT 11 Units/L (12-78) L 12/26/16 06:20 Alkaline Phosphatase 86 Units/L (46-116) 12/26/16 06:20 Creatine Kinase 57 Units/L (26-192) 12/26/16 06:20 CK-MB (CK-2) < 1.0 ng/mL (0-4.0) 12/26/16 06:20 CK/CKMB % Calc 1.8 % (<4) 12/26/16 06:20 Troponin I < 0.02 ng/mL (0-1.5) 12/26/16 06:20 Total Protein 7.8 g/dL (6.4-8.2) 12/26/16 06:20 Albumin 3.1 g/dL (3.4-5.0) L 12/26/16 06:20 Globulin 4.7 g/dL (2.5-4.5) H 12/26/16 06:20 Albumin/Globulin Ratio 0.7 Ratio (1.1-2.1) L 12/26/16 06:20 - XRAY XRAY Findings: REPORT DISCUSS WITH PATIENT. - EKG Rhythm: NSR (EKG NOTED.) - Diagnosis Discharge Problem: Chest pain Qualifiers: Chest pain type: precordial pain Qualified Code(s): R07.2 - Precordial pain - Discharge Plan Condition: Stable - Follow ups/Referrals Follow ups/Referrals: NFD,None [Primary Care Provider] - 2 days - Instructions Instructions: Chest Pain Observation Additional Instructions: RETURN TO ED IF WORSE. FOLLOW UP WITH DR. RAMIREZ IN AM.
[2016-12-26 06:34] LABS: BASOPHILS # (AUTO) 0.1 X10^3/uL (0.0-0.1); EOSINOPHILS # (AUTO) 0.3 x10^3/uL (0.0-0.2); EOSINOPHILS % (AUTO) 2.3 % (0.9-2.9); HEMATOCRIT 32.7 % (36.0-47.0); HEMOGLOBIN 10.6 g/dL (12.0-16.0); LYMPHOCYTES % (AUTO) 8.6 % (21.0-51.0); MEAN CORPUSCULAR HEMOGLOBIN 25.4 pg (27.0-34.0); MEAN CORPUSCULAR HGB CONC 32.5 g/dL (33.0-35.0); MEAN CORPUSCULAR VOLUME 78.1 fL (80.0-100.0); MEAN PLATELET VOLUME 8.6 fL (7.4-11.0); MONOCYTES # (AUTO) 1.3 x10^3/uL (0.3-0.8); MONOCYTES % (AUTO) 10.8 % (0.0-13.0); NEUTROPHILS # (AUTO) 9.2 x10^3/uL (2.2-4.8); NEUTROPHILS % (AUTO) 77.3 % (42.0-75.0); PLATELET COUNT 279 X10^3/uL (150.0-450.0); RED BLOOD COUNT 4.19 X10^6/uL (3.5-5.4); RED CELL DISTRIBUTION WIDTH 16.5 % (11.6-16.5); WHITE BLOOD COUNT 11.9 X10^3/uL (3.6-10.0)
[2016-12-26 06:36] LABS: PLATELET MORPHOLOGY COMMENT NORMAL (NORMAL)
[2016-12-26 06:47] LABS: BLOOD UREA NITROGEN 15 mg/dL (7-18); CALCIUM 8.9 mg/dL (8.5-10.1); CARBON DIOXIDE 25.4 mmol/L (21-32); CHLORIDE 101 mmol/L (98-107); COR NA(FOR HYPERGLY) 138 mmol/L (136-145); CREATININE 3.76 mg/dL (0.55-1.02); SODIUM 137 mmol/L (136-145); TROPONIN I < 0.02 ng/mL (0-1.5); eGFR BLACK RACES 15 (>60); eGFR NON BLACK RACES 13 (>60)
[2016-12-26 06:53] LABS: ALANINE AMINOTRANSFERASE 11 Units/L (12-78); ALBUMIN 3.1 g/dL (3.4-5.0); ALKALINE PHOSPHATASE 86 Units/L (46-116); ASPARTATE AMINO TRANSFERASE 18 Units/L (15-37); CKMB % 1.8 % (<4); COR CA(FOR HYPOALB) 9.6 mg/dL (8.5-10.1); CREATINE KINASE 57 Units/L (26-192); CREATINE KINASE MB < 1.0 ng/mL (0-4.0); TOTAL PROTEIN 7.8 g/dL (6.4-8.2)
--- NOTE | 2016-12-26 06:56 | RAD ---
HISTORY: Chest pain Study: Chest AP portable Comparison: 10/25/2016 Findings: There is a dialysis catheter with its tip in the superior vena cava. The heart is within normal limit s in size. The rahat are normal. The lung choi are clear. The bony thorax is unremarkable. IMPRESSION: Lungs clear Reported By:
[2016-12-26 07:57] VITALS: BP 113/72
== END 2016-12-26 09:26 | disposition home or self-care (01) ==
LOC: ER 05:22
DX: R07.2 Precordial pain (principal); R07.89 Other chest pain
CPT/HCPCS: 36415; 71010; 80053; 82550; 82553; 84484; 85025; 93005; 93010; 99282; 99283

== ENCOUNTER 2017-01-19 01:21 | Emergency (ER) | payer OTHER, MEDICAID ==
[2017-01-19 01:34] VITALS: BMI 27.3
--- NOTE | 2017-01-19 01:58 | DR.CP ---
HPI - Time Seen Time seen: 01:55 - PCP Primary Care Physician: JAMES - Complaint Chief Complaint Doctor Comments: Patient is complaining of xiphoid chest pain for the past three hours getting worst initially but states she is not hurting presently. States the pain was 10 of10 but she is not hurting presently. States she is a patient of Dr. Ramirez and she went to dialysis today. She has had aspirin and nitroglycerin today. She denies cold, cough, fever, chills, nausea or vomiting. States she is to go to the heart doctor in [place] next for her first visit with the heart doctor. Chief Complaint:: CP X 3 HOURS - Reviewed Nurses Notes Review: Yes - Source History Provided: Patient - Mode of Arrival Mode of Arrival: EMS - Timing Onset of Chief Complaint: 01/19/17 Came on: Suddenly Pain: Present Now - Duration Duration: Constant How lon Duration: Hours - Location Location of Chest Pain: Chest Chest Pain Radiation Location: None - Context Onset: At rest Cardiac Risk Factors: HTN PE Risk Factors: None History of: Similar pain in the past Prehospital Care: Oxygen, Monitor - Quality Quality: Pressure like - Severity Severity: Moderate - Modifying Factors Worsens: Nothing Impoves: Nothing - Associated Signs and Symptoms Associated Signs and Symptoms: None PMH - PMH Past Medical History: Yes Past Medical History: Arthritis, COPD, CVA, Dyslipidemia, GERD, Hypertension, [place] , Renal Disease Past Surgical History: Yes Surgical History: Ortho Surgery, Other Past Surgical History Comment: LEFT ARM SHUNT - Family History History of Family Medical Conditions: Yes Family Medical History: Diabetes Mellitus, Cancer, [place], Hypertension - Social History Type of Tobacco Use: Cigarettes Alcohol Use: None Do you use any recreational Drugs:: No Lives With: Family Lives Where: Home - infectious screening In the last 2 months have you had wt loss of >10#?: NO Have you had fever, night sweats or hemotysis?: No Have you traveled outside the country in the last 6 months?: No Isolation: Standard ROS - Review of Systems Constitutional: No Symptoms Reported. negative: See HPI, Chills, Diaphoresis, Fever, Malaise, Weakness, Irritable, Fatigue, Loss of Appetite, Other Eyes: No Symptoms Reported ENTM: No Symptoms Reported Respiratoy: No Symptoms Reported. negative: See HPI, Productive Cough, Non- Productive Cough, Moist Cough, Dry Cough, Hacking Cough, Barking Cough, Brassy Cough, Orthopnea, Short of Breath, Stridor, Wheezing, Hemoptysis, Other Cardiovascular: No Symptoms Reported, Chest Pain Gastrointestinal/Abdominal: No Symptoms Reported. negative: See HPI, Abdominal Pain, Constipation, Diarrhea, Nausea, Vomiting, Food Intolerance, Other Genitourinary: No Symptoms Reported. negative: See HPI, Discharge, Dysuria, Frequency, Hematuria, Pain, Bleeding, Other Neurological: No Symptoms Reported Musculoskeletal: No Symptoms Reported Integumentary: No Symptoms Reported, See HPI Hematologic/Lymphatic: No Symptoms Reported Endocrine: No Symptoms Reported Psychiatric: No Symptoms Reported PE - Vitals Vitals: Temperature 98.7 F Pulse Rate 112 Respiratory Rate 20 Blood Pressure [Left Arm] 153/67 Blood Pressure [Right Arm] 113/72 Blood Pressure 154/92 O2 Sat by Pulse Oximetry 99 - General Limitations: No Limitations General Appearance: Alert, In No Apparent Distress, Obese - Head Head Exam: Normal Inspection, Atraumatic, Normocephalic - Eyes Eye exam: Normal Appearance, PERRL, EOMI. negative: Scleral Icterus, Conjunctival Injection, Nystagmus, Miosis, Mydrasis, Periorbital Swelling, Periorbital Tenderness, Other - ENT ENT Exam: Normal Exam, Normal Oropharynx, Normal External Ear Exam, Mucous Membranes Moist, TM's Normal Bilaterally - Chest Chest Inspection: Normal Inspection, Symmetric Chest Wall Rise - Respiratory Respiratory Exam: Normal Lung Sounds Bilat Respiratory Exam: Bilateral Clear to Auscultation - Cardiovascular Cardiovascular Exam: Regular Rate, Normal Rhythm, Normal Heart Sounds Pulse: Normal Edema: Normal - Abdominal Exam Abdominal Exam: Normal Inspection, Normal Bowel Sounds, Soft. negative: Distention, Tenderness, Guarding, Rebound, Rigidity, Dimnished Bowel Sounds, Hyperactive Bowel Sounds, Hypoactive Bowel Sounds, Organomegaly, Trauma, Incision, Ascites, Mass, Bruit, Pulsatile Mass, Hernia, Other Abdominal Tenderness: negative: RUQ, RLQ, LUQ, LLQ, Epigastrium, Suprapubic, Diffuse, Mild, Moderate, Severe, Other - Extremities Extremities Exam: Normal Inspection, Full ROM, Normal Capillary Refill, Edema (2 +). negative: Tenderness (right AKA) - Back Back Exam: Normal Inspection, Full ROM - Neurologic Neurological Exam: Alert, Oriented X3, CN II-XII Intact, Reflexes Normal. negative: Normal Gait (gait not tested) - Skin Skin Exam: Warm, Dry, Intact, Normal Color ROR - Labs Reviewed Laboratory Results Reviewed?: Yes (all labs and x-ray results reviewed and discussed with patient and family) Result Diagrams: 01/19/17 02:40 01/19/17 02:40 Laboratory: WBC 10.1 X10^3/uL (3.6-10.0) H 01/19/17 02:40 RBC 4.37 X10^6/uL (3.5-5.4) 01/19/17 02:40 Hgb 10.8 g/dL (12.0-16.0) L 01/19/17 02:40 Hct 33.7 % (36.0-47.0) L 01/19/17 02:40 MCV 77.2 fL (80.0-100.0) L 01/19/17 02:40 MCH 24.8 pg (27.0-34.0) L 01/19/17 02:40 MCHC 32.1 g/dL (33.0-35.0) L 01/19/17 02:40 RDW 16.5 % (11.6-16.5) 01/19/17 02:40 Plt Count 277 X10^3/uL (150.0-450.0) 01/19/17 02:40 Plt Count Comment Adequate (ADEQUATE) 01/19/17 02:40 MPV 9.1 fL (7.4-11.0) 01/19/17 02:40 Neut % 73.7 % (42.0-75.0) 01/19/17 02:40 Lymph % 12.8 % (21.0-51.0) L 01/19/17 02:40 [place] % 9.5 % (0.0-13.0) 01/19/17 02:40 Eos % 3.2 % (0.9-2.9) H 01/19/17 02:40 Baso % 0.8 % (0.2-1.0) 01/19/17 02:40 Neut # 7.4 x10^3/uL (2.2-4.8) H 01/19/17 02:40 Lymph # 1.3 X10^3/uL (1.3-2.9) 01/19/17 02:40 [place] # 1.0 x10^3/uL (0.3-0.8) H 01/19/17 02:40 Eos # 0.3 x10^3/uL (0.0-0.2) H 01/19/17 02:40 Baso # 0.1 X10^3/uL (0.0-0.1) 01/19/17 02:40 Absolute Nucleated RBC 0.1 /100WBC 01/19/17 02:40 Plt Morphology Comment Normal (NORMAL) 01/19/17 02:40 RBC Morphology Normal (NORMAL) 01/19/17 02:40 INR Target Range - 01/19/17 02:40 INR 1.12 (0.8-1.3) 01/19/17 02:40 PTT 30.9 SECONDS (22.9-36.5) 01/19/17 02:40 PTT Comment - 01/19/17 02:40 Sodium 144 mmol/L (136-145) 01/19/17 02:40 Corrected Sodium 145 mmol/L (136-145) 01/19/17 02:40 Potassium 3.9 mmol/L (3.5-5.1) 01/19/17 02:40 Chloride 105 mmol/L (98-107) 01/19/17 02:40 Carbon Dioxide 29.6 mmol/L (21-32) 01/19/17 02:40 BUN 26 mg/dL (7-18) H 01/19/17 02:40 Creatinine 3.24 mg/dL (0.55-1.02) H 01/19/17 02:40 Est GFR (MDRD) Af Amer 18 (>60) L 01/19/17 02:40 Est GFR (MDRD) Non-Af 15 (>60) L 01/19/17 02:40 Glucose 141 mg/dL (65-99) H 01/19/17 02:40 Calcium 9.3 mg/dL (8.5-10.1) 01/19/17 02:40 Corrected Calcium 9.9 mg/dL (8.5-10.1) 01/19/17 02:40 Magnesium 2.1 mg/dL (1.7-2.9) 01/19/17 02:40 Total Bilirubin 0.20 mg/dL (0.2-1.0) 01/19/17 02:40 AST 14 Units/L (15-37) L 01/19/17 02:40 ALT 10 Units/L (12-78) L 01/19/17 02:40 Alkaline Phosphatase 117 Units/L (46-116) H 01/19/17 02:40 Creatine Kinase 54 Units/L (26-192) 01/19/17 02:40 CK-MB (CK-2) < 1.0 ng/mL (0-4.0) 01/19/17 02:40 CK/CKMB % Calc 1.9 % (<4) 01/19/17 02:40 Troponin I < 0.02 ng/mL (0-1.5) 01/19/17 02:40 Total Protein 7.8 g/dL (6.4-8.2) 01/19/17 02:40 Albumin 3.3 g/dL (3.4-5.0) L 01/19/17 02:40 Globulin 4.5 g/dL (2.5-4.5) 01/19/17 02:40 Albumin/Globulin Ratio 0.7 Ratio (1.1-2.1) L 01/19/17 02:40 - XRAY XRAY Interpreted by: Radiologist (CXR: No acuate acardiopulmonary abnormality or change from prior exam) - EKG Rate: 115 [place]: Normal Rhythm: ST Block: None Hypertrophy: LAE ST: Nonsp (EKG not changed since 12/26/16) - Diagnosis Discharge Problem: Chest pain in adult, Hyperglycemia, Sinus tachycardia, Hypertension Renal failure Qualifiers: Chronic kidney disease stage: on chronic dialysis - Discharge Plan Disposition: HOME, SELF-CARE Condition: Stable Prescriptions: Nitroglycerin Sublingual [NITROSTAT SUBLING TAB 0.4 MG *] 0.4 mg SL PRN PRN #25 tab PRN Reason: Angina (Chest Pain) - Follow ups/Referrals Follow ups/Referrals: NFD,None [Primary Care Provider] - 3 days Markell RAMIREZ [STAFF PHYSICIAN] - 3 days - Instructions Instructions: Angina Pectoris, [id number], Hyperglycemia, Sinus Tachycardia, Hypertension, [id number]
--- NOTE | 2017-01-19 02:17 | RAD ---
AP chest Indication: Chest pain Comparison: 12/26/2016 Findings: Heart size within normal limits. There is no change in position of right-sided chest wall v ascular catheter again terminating at the atrial caval junction. No focal airspace opacity, pleural e ffusion or pneumothorax. No acute osseous abnormality. Impression: No acute cardiopulmonary abnormality or change from prior exam. Reported By:
[2017-01-19 02:57] LABS: BASOPHILS # (AUTO) 0.1 X10^3/uL (0.0-0.1); BASOPHILS % (AUTO) 0.8 % (0.2-1.0); EOSINOPHILS # (AUTO) 0.3 x10^3/uL (0.0-0.2); EOSINOPHILS % (AUTO) 3.2 % (0.9-2.9); HEMATOCRIT 33.7 % (36.0-47.0); HEMOGLOBIN 10.8 g/dL (12.0-16.0); LYMPHOCYTES # (AUTO) 1.3 X10^3/uL (1.3-2.9); LYMPHOCYTES % (AUTO) 12.8 % (21.0-51.0); MEAN CORPUSCULAR HEMOGLOBIN 24.8 pg (27.0-34.0); MEAN CORPUSCULAR HGB CONC 32.1 g/dL (33.0-35.0); MEAN CORPUSCULAR VOLUME 77.2 fL (80.0-100.0); MEAN PLATELET VOLUME 9.1 fL (7.4-11.0); MONOCYTES % (AUTO) 9.5 % (0.0-13.0); NEUTROPHILS # (AUTO) 7.4 x10^3/uL (2.2-4.8); NEUTROPHILS % (AUTO) 73.7 % (42.0-75.0); PLATELET COUNT 277 X10^3/uL (150.0-450.0); RED BLOOD COUNT 4.37 X10^6/uL (3.5-5.4); RED CELL DISTRIBUTION WIDTH 16.5 % (11.6-16.5); WHITE BLOOD COUNT 10.1 X10^3/uL (3.6-10.0)
[2017-01-19 03:13] LABS: BLOOD UREA NITROGEN 26 mg/dL (7-18); CALCIUM 9.3 mg/dL (8.5-10.1); CARBON DIOXIDE 29.6 mmol/L (21-32); CHLORIDE 105 mmol/L (98-107); COR NA(FOR HYPERGLY) 145 mmol/L (136-145); CREATININE 3.24 mg/dL (0.55-1.02); SODIUM 144 mmol/L (136-145); TROPONIN I < 0.02 ng/mL (0-1.5); eGFR BLACK RACES 18 (>60); eGFR NON BLACK RACES 15 (>60)
[2017-01-19 03:15] LABS: PLATELET MORPHOLOGY COMMENT NORMAL (NORMAL)
[2017-01-19 03:18] LABS: ALANINE AMINOTRANSFERASE 10 Units/L (12-78); ALBUMIN 3.3 g/dL (3.4-5.0); ALKALINE PHOSPHATASE 117 Units/L (46-116); ASPARTATE AMINO TRANSFERASE 14 Units/L (15-37); CKMB % 1.9 % (<4); COR CA(FOR HYPOALB) 9.9 mg/dL (8.5-10.1); CREATINE KINASE 54 Units/L (26-192); CREATINE KINASE MB < 1.0 ng/mL (0-4.0); MAGNESIUM 2.1 mg/dL (1.7-2.9); TOTAL PROTEIN 7.8 g/dL (6.4-8.2)
[2017-01-19 06:01] VITALS: BP 155/95
== END 2017-01-19 05:00 | disposition home or self-care (01) ==
LOC: ER 01:21
DX: R07.89 Other chest pain (principal); R73.9 Hyperglycemia, unspecified; R00.0 Tachycardia, unspecified; I10 Essential (primary) hypertension; N18.9 Chronic kidney disease, unspecified
CPT/HCPCS: 36415; 71010; 80053; 82550; 82553; 83735; 84484; 85025; 85610; 85730; 93005; 93010; 99283

== ENCOUNTER 2017-03-05 15:43 | Emergency (ER) | payer OTHER, MEDICAID ==
[2017-03-05 15:52] VITALS: BP 156/72; BMI 29.2
--- NOTE | 2017-03-05 16:57 | DR.GENAD ---
HPI - PCP Primary Care Physician: JAMES - Complaint/Symptoms Chief Complaint:: PATIENT STATED THAT SHE HAD OPEN HEART SURGERY ABOUT 4 WEEKS AGO IN [facility]. SHE HAD HAS A WOUND TO THE STERNUM THAT A HOME HEALTH NURSE COMES AND DRESSES. SHE STATED THAT WHEN THE NURSE CAME TODAY AND REDRESSED IT SHE WAS CONCERNED WITH THE TOP COMING OPEN. PATIENT STATED SHE IS NOT IN ANY PAIN. - Nurses notes reviewed Nurses Notes Review: Yes - Source History Provided: Patient - Mode of Arrival Mode of Arrival: EMS - Timing Onset of Chief Complaint: 03/02/17 PMH - PMH Past Medical History: Yes Past Medical History: Arthritis, COPD, CVA, Dyslipidemia, GERD, Hypertension, [place] , Renal Disease Past Surgical History: Yes Surgical History: Ortho Surgery, Other - Family History History of Family Medical Conditions: Yes Family Medical History: Diabetes Mellitus, Cancer, [place], Hypertension - Social History Do you use any recreational Drugs:: No - infectious screening In the last 2 months have you had wt loss of >10#?: NO Have you had fever, night sweats or hemotysis?: No Have you traveled outside the country in the last 6 months?: No Isolation: Standard PE - Vital Signs Vitals: Temperature 98.3 F Pulse Rate 96 Respiratory Rate 20 Blood Pressure [Left Arm] 153/67 Blood Pressure [Right Arm] 155/95 Blood Pressure 156/72 - Discharge Plan Condition: Stable Prescriptions: Doxycycline Monohydrate 100 mg PO BID #20 tablet - Follow ups/Referrals Follow ups/Referrals: Markell RAMIREZ [Primary Care Provider] - 3 days - Instructions Instructions: Wound Dehiscence, [id number] Additional Instructions: RETURN TO ED IF WORSE. WET TO DRY WOUND DRESSING BID. FOLLOW UP WITH CARDIOTHORACIC DRTamara RANDHAWA.
--- NOTE | 2017-03-05 17:24 | RAD ---
Indication: Cough Exam: Portable chest Comparison: 01/19/2017. Findings: The heart is normal. The pulmonary vessels are normal. There are postop changes along the m ediastinum and sternum. There is a right-sided dialysis catheter in place which is in good position. No consolidation or effusion is seen. The bones are intact. Impression: Status post CABG surgery with no acute pulmonary abnormality seen. Right subclavian catheter in good position Reported By:
[2017-03-05] MEDS ORDERED: NS IRRIGATION 1000 ML 1,000 ML ONE (18:38)
[2017-03-05] MEDS ORDERED: VIBRAMYCIN PO ONE ×2 (18:40→18:54)
== END 2017-03-05 19:05 | disposition home or self-care (01) ==
LOC: ER 15:57
DX: T81.30XA Disruption of wound, unspecified, initial encounter (principal)
CPT/HCPCS: 71010; 99282; 99283

== ENCOUNTER 2017-05-15 20:50 | Emergency (ER) | payer OTHER, MEDICAID ==
[2017-05-15 20:56] VITALS: BP 128/82; BMI 23.0
--- NOTE | 2017-05-15 21:30 | DR.SOBA ---
HPI - Time Seen Time seen: 21:22 - Primary Care Physician Primary Care Physician: michelle - Complaints Chief Complaint Doctors Comments: Patient presents with complaint of a cold for one to two weeks. Denies fever. Denies getting influenza shot. Admits to heart surgery January 2017 due to atherosclerosis. Denies getting influenza shot Chief Complaint:: "i just got a bad cough." family states, "she has shortness of breath." - Source History Provided: Patient - Mode of Arrival Mode of Arrival: Wheelchair - Timing Onset of Chief Complaint: 05/08/17 PMH - PMH Past Medical History: Yes Past Medical History: Arthritis, COPD, CVA, Dyslipidemia, GERD, Hypertension, [place] , Renal Disease Past Surgical History: Yes Surgical History: Ortho Surgery, Other - Family History History of Family Medical Conditions: Yes Family Medical History: Diabetes Mellitus, Cancer, [place], Hypertension - Social History Type of Tobacco Use: None Alcohol Use: None Do you use any recreational Drugs:: No Lives With: Family Lives Where: Home - infectious screening Have you traveled outside the country in the last 6 months?: No Isolation: Standard ROS - Review of Systems Eyes: No Symptoms Reported ENTM: No Symptoms Reported Respiratoy: No Symptoms Reported Cardiovascular: No Symptoms Reported Gastrointestinal/Abdominal: No Symptoms Reported Genitourinary: No Symptoms Reported Neurological: No Symptoms Reported Musculoskeletal: No Symptoms Reported Integumentary: No Symptoms Reported Hematologic/Lymphatic: No Symptoms Reported Endocrine: No Symptoms Reported Psychiatric: No Symptoms Reported All Other Systems: Reviewed and Negative PE - Vital Signs Vitals: Temperature 98.7 F Pulse Rate 116 Respiratory Rate 20 Blood Pressure [Left Arm] 153/67 Blood Pressure [Right Arm] 155/95 Blood Pressure 128/82 O2 Sat by Pulse Oximetry 96 - General Limitations: No Limitations General Appearance: Alert, In No Apparent Distress - Head Head Exam: Normal Inspection, Atraumatic - Eyes Eye exam: Normal Appearance, PERRL, EOMI - ENT ENT Exam: Normal Exam - Neck Neck Exam: Normal Inspection, Full ROM - Chest Chest Inspection: Normal Inspection - Respiratory Respiratory Exam: Normal Lung Sounds Bilat Respiratory Exam: Bilateral Clear to Auscultation - Cardiovascular Cardiovascular Exam: Regular Rate, Normal Rhythm - Abdominal Exam Abdominal Exam: Normal Inspection, Normal Bowel Sounds Abdominal Tenderness: negative: RUQ, RLQ, LUQ, LLQ, Epigastrium, Suprapubic, Diffuse, Mild, Moderate, Severe, Other - Extremities Extremities Exam: Normal Inspection, Other (BKA right lower extremity) - Back Back Exam: Normal Inspection - Neurologic Neurological Exam: Alert, Oriented X3, CN II-XII Intact - Psychiatric Psychiatric Exam: Normal Affect, Normal Mood - Skin Skin Exam: Warm, Dry, Intact Course - Reevaluation 2nd: Improved ROR - Labs Reviewed Result Diagrams: 05/15/17 21:45 05/15/17 21:45 Laboratory: WBC 10.8 X10^3/uL (3.6-10.0) H 05/15/17 21:45 RBC 4.61 X10^6/uL (3.5-5.4) 05/15/17 21:45 Hgb 11.5 g/dL (12.0-16.0) L 05/15/17 21:45 Hct 34.1 % (36.0-47.0) L 05/15/17 21:45 MCV 73.9 fL (80.0-100.0) L 05/15/17 21:45 MCH 24.9 pg (27.0-34.0) L 05/15/17 21:45 MCHC 33.6 g/dL (33.0-35.0) 05/15/17 21:45 RDW 17.2 % (11.6-16.5) H 05/15/17 21:45 Plt Count 264 X10^3/uL (150.0-450.0) 05/15/17 21:45 Plt Count Comment Adequate (ADEQUATE) 05/15/17 21:45 MPV 8.2 fL (7.4-11.0) 05/15/17 21:45 Neut % 63.0 % (42.0-75.0) 05/15/17 21:45 Lymph % 18.2 % (21.0-51.0) L 05/15/17 21:45 [place] % 14.4 % (0.0-13.0) H 05/15/17 21:45 Eos % 3.3 % (0.9-2.9) H 05/15/17 21:45 Baso % 1.1 % (0.2-1.0) H 05/15/17 21:45 Neut # 6.8 x10^3/uL (2.2-4.8) H 05/15/17 21:45 Lymph # 2.0 X10^3/uL (1.3-2.9) 05/15/17 21:45 [place] # 1.6 x10^3/uL (0.3-0.8) H 05/15/17 21:45 Eos # 0.4 x10^3/uL (0.0-0.2) H 05/15/17 21:45 Baso # 0.1 X10^3/uL (0.0-0.1) 05/15/17 21:45 Absolute Nucleated RBC 0.1 /100WBC 05/15/17 21:45 Plt Morphology Comment Normal (NORMAL) 05/15/17 21:45 RBC Morphology Abnormal (NORMAL) A 05/15/17 21:45 Hypochromasia Slight A 05/15/17 21:45 Anisocytosis Slight A 05/15/17 21:45 Microcytosis Slight A 05/15/17 21:45 Target Cells Present 05/15/17 21:45 Sodium 140 mmol/L (136-145) 05/15/17 21:45 Corrected Sodium 141 mmol/L (136-145) 05/15/17 21:45 Potassium 3.2 mmol/L (3.5-5.1) L 05/15/17 21:45 Chloride 98 mmol/L (98-107) 05/15/17 21:45 Carbon Dioxide 32.4 mmol/L (21-32) H 05/15/17 21:45 BUN 14 mg/dL (7-18) 05/15/17 21:45 Creatinine 2.57 mg/dL (0.55-1.02) H 05/15/17 21:45 Est GFR (MDRD) Af Amer 24 (>60) L 05/15/17 21:45 Est GFR (MDRD) Non-Af 20 (>60) L 05/15/17 21:45 Glucose 130 mg/dL (65-99) H 05/15/17 21:45 Calcium 8.4 mg/dL (8.5-10.1) L 05/15/17 21:45 Influenza Type A (PCR) Negative (NEGATIVE) 05/15/17 21:32 Influenza Type B (PCR) Negative (NEGATIVE) 05/15/17 21:32 - XRAY XRAY Interpreted by: Radiologist (Chest: There is cardiomegaly without penumothorax or large effusion. No consolidation seen. Heart size is prominent. Dual-lumen dialysis catheter tips project over the cavoatrial junction.Impression: Cardiomegaly and post sternotomy change without pneumothorax or consolidation. No severe edema) - Diagnosis Discharge Problem: Influenza-like illness - Discharge Plan Condition: Stable - Follow ups/Referrals Follow ups/Referrals: Markell RAMIREZ [Primary Care Provider] - 3 days - Instructions
[2017-05-15 21:49] LABS: BASOPHILS # (AUTO) 0.1 X10^3/uL (0.0-0.1); BASOPHILS % (AUTO) 1.1 % (0.2-1.0); EOSINOPHILS # (AUTO) 0.4 x10^3/uL (0.0-0.2); EOSINOPHILS % (AUTO) 3.3 % (0.9-2.9); HEMATOCRIT 34.1 % (36.0-47.0); HEMOGLOBIN 11.5 g/dL (12.0-16.0); LYMPHOCYTES % (AUTO) 18.2 % (21.0-51.0); MEAN CORPUSCULAR HEMOGLOBIN 24.9 pg (27.0-34.0); MEAN CORPUSCULAR HGB CONC 33.6 g/dL (33.0-35.0); MEAN CORPUSCULAR VOLUME 73.9 fL (80.0-100.0); MEAN PLATELET VOLUME 8.2 fL (7.4-11.0); MONOCYTES # (AUTO) 1.6 x10^3/uL (0.3-0.8); MONOCYTES % (AUTO) 14.4 % (0.0-13.0); NEUTROPHILS # (AUTO) 6.8 x10^3/uL (2.2-4.8); PLATELET COUNT 264 X10^3/uL (150.0-450.0); RED BLOOD COUNT 4.61 X10^6/uL (3.5-5.4); RED CELL DISTRIBUTION WIDTH 17.2 % (11.6-16.5); WHITE BLOOD COUNT 10.8 X10^3/uL (3.6-10.0)
[2017-05-15 21:57] LABS: CALCIUM 8.4 mg/dL (8.5-10.1); CARBON DIOXIDE 32.4 mmol/L (21-32); CREATININE 2.57 mg/dL (0.55-1.02)
[2017-05-15 22:04] LABS: ANISOCYTOSIS SLIGHT; HYPOCHROMASIA SLIGHT; MICROCYTOSIS SLIGHT; PLATELET MORPHOLOGY COMMENT NORMAL (NORMAL); TARGET CELLS PRESENT
[2017-05-15] MEDS ORDERED: K-LYTE EFFERVESCENT ONE (22:04)
[2017-05-15] MEDS ORDERED: LR 1000 ML IV 1,000 ML IV ONE (22:06)
--- NOTE | 2017-05-15 22:19 | RAD ---
Chest AP portable Indication: Cough and dyspnea Comparison: 03/05/2017 Findings: There is cardiomegaly without pneumothorax or large effusion. No consolidation seen. Heart size is prominent. Dual-lumen dialysis catheter tips project over the cavoatrial junction. Impression: Cardiomegaly and post sternotomy change without pneumothorax or consolidation. No severe edema seen. Reported By:
[2017-05-15] MEDS ORDERED: K-LYTE EFFERVESCENT PO SCH (23:00)
[2017-05-15] MEDS ORDERED: LR 1000 ML IV 1,000 ML IV SCH (23:00)
== END 2017-05-15 23:23 | disposition home or self-care (01) ==
LOC: ER 21:01
DX: R06.02 Shortness of breath (principal); R05 Cough; J00 Acute nasopharyngitis [common cold]; I51.7 Cardiomegaly; Z95.1 Presence of aortocoronary bypass graft
CPT/HCPCS: 36415; 71045; 80048; 85025; 87502; 99283; 99284; J7120

== ENCOUNTER 2017-06-03 06:54 | Emergency (ER) | payer OTHER, MEDICAID ==
[2017-06-03] MEDS ORDERED: NS 1000 ML 1,000 ML ONE (07:16)
[2017-06-03 07:19] VITALS: BMI 32.5
[2017-06-03] MEDS ORDERED: SODIUM BICARBONATE 8.4% INJ ADULT IVP ONE (07:19)
[2017-06-03 07:32] LABS: BASOPHILS # (AUTO) 0.1 X10^3/uL (0.0-0.1); BASOPHILS % (AUTO) 0.5 % (0.2-1.0); EOSINOPHILS # (AUTO) 0.8 x10^3/uL (0.0-0.2); EOSINOPHILS % (AUTO) 5.2 % (0.9-2.9); HEMOGLOBIN 11.4 g/dL (12.0-16.0); LYMPHOCYTES # (AUTO) 4.6 X10^3/uL (1.3-2.9); LYMPHOCYTES % (AUTO) 29.5 % (21.0-51.0); MEAN CORPUSCULAR HEMOGLOBIN 24.9 pg (27.0-34.0); MEAN CORPUSCULAR HGB CONC 32.5 g/dL (33.0-35.0); MEAN CORPUSCULAR VOLUME 76.6 fL (80.0-100.0); MEAN PLATELET VOLUME 8.8 fL (7.4-11.0); MONOCYTES # (AUTO) 1.6 x10^3/uL (0.3-0.8); MONOCYTES % (AUTO) 10.5 % (0.0-13.0); NEUTROPHILS # (AUTO) 8.4 x10^3/uL (2.2-4.8); NEUTROPHILS % (AUTO) 54.3 % (42.0-75.0); PLATELET COUNT 323 X10^3/uL (150.0-450.0); RED BLOOD COUNT 4.56 X10^6/uL (3.5-5.4); RED CELL DISTRIBUTION WIDTH 17.5 % (11.6-16.5); WHITE BLOOD COUNT 15.5 X10^3/uL (3.6-10.0)
--- NOTE | 2017-06-03 07:38 | DR.GENAD ---
HPI - PCP Primary Care Physician: Dr Ramirez - Complaint/Symptoms Chief Complaint Doctors Comments: Patient presented to the ED via EMS in respiratory distress. She was being bagged by EMT unable to intubate with chest compression. Family member states that patient was found gasping for breath in the room. She had been in her usual state of health. She is a dialysis patient on no oxygen support. 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 Patient stabalized. Chief Complaint:: EMS OUT TO PT HAVING TROUBLE BREATHING AND FAMILY STATES THEY FOUND PT THIS AM SITTING UP GASPING FOR AIR ,, EMS CONCURRED THAT THAT IS WHAT THEY FOUND UPON ARRIVAL PT RESP > AND PT RESP LABORORED AND PT WAS GASPING,, ONCE IN ER PT WAS BEING BAGGED AND RESP LABORDED ,,, AND SHE WAS GASPING......DR. TEJADA PRESENT. - Source History Provided: Family Member, EMS - Mode of Arrival Mode of Arrival: EMS - Timing Onset of Chief Complaint: 06/03/17 PMH - PMH Past Medical History: Yes Past Medical History: Arthritis, COPD, CVA, Dyslipidemia, GERD, Hypertension, ID , Renal Disease Past Surgical History: Yes Surgical History: Ortho Surgery, Other - Family History History of Family Medical Conditions: Yes Family Medical History: Diabetes Mellitus, Cancer, ID, Hypertension - Social History Does patient currently use any type of tobacco product: No Have you used tobacco products in the last 12 months: No Type of Tobacco Use: None Does any household member use tobacco: No Alcohol Use: None Do you use any recreational Drugs:: No Lives With: Family Lives Where: Home - infectious screening In the last 2 months have you had wt loss of >10#?: NO Have you had fever, night sweats or hemotysis?: No Have you traveled outside the country in the last 6 months?: No Isolation: Standard ROS - Review of Systems Eyes: No Symptoms Reported ENTM: No Symptoms Reported Respiratoy: Short of Breath Cardiovascular: No Symptoms Reported Gastrointestinal/Abdominal: No Symptoms Reported Genitourinary: No Symptoms Reported Neurological: See HPI Musculoskeletal: No Symptoms Reported Integumentary: No Symptoms Reported Hematologic/Lymphatic: No Symptoms Reported Endocrine: No Symptoms Reported Psychiatric: No Symptoms Reported All Other Systems: Reviewed and Negative PE - Vital Signs Vitals: Temperature 97.5 F Pulse Rate [Apical] 97 Pulse Rate 109 Respiratory Rate 27 Blood Pressure [Left Arm] 153/67 Blood Pressure [Right Arm] 114/70 Blood Pressure 171/90 O2 Sat by Pulse Oximetry 100 - General General Appearance: Alert, Anxious - Head Head Exam: Normal Inspection, Atraumatic - Eyes Eye exam: PERRL, EOMI - ENT ENT Exam: Normal Exam External Ear Exam: Normal External Inspection TM/Canal Exam: Bilateral Normal Nose Exam: Normal Nose Exam Mouth Exam: Normal Inspection Throat Exam: Normal Inspection - Neck Neck Exam: Normal Inspection - Chest Chest Inspection: Normal Inspection - Respiratory Respiratory Exam: Normal Lung Sounds Bilat Respiratory Exam: Bilateral Clear to Auscultation - Cardiovascular Cardiovascular Exam: Regular Rate, Normal Rhythm - Abdominal Exam Abdominal Exam: Normal Inspection, Normal Bowel Sounds Abdominal Tenderness: negative: RUQ, RLQ, LUQ, LLQ, Epigastrium, Suprapubic, Diffuse, Mild, Moderate, Severe, Other - Extremities Extremities Exam: Normal Inspection - Back Back Exam: Normal Inspection, Full ROM - Neurologic Neurological Exam: Alert, Oriented X3, CN II-XII Intact - Psychiatric Psychiatric Exam: Flat Affect - Skin Skin Exam: Warm, Dry, Intact Course - Reevaluation 1st: Improved - Consultation Called: 08:20 Call Returned: 08:35 (Dr Sosa accepted for further treatment) - Education/Counseling Educated On: Treatment, Diagnosis ROR - Labs Reviewed Result Diagrams: 06/03/17 07:20 06/03/17 07:20 Laboratory: WBC 15.5 X10^3/uL (3.6-10.0) H 06/03/17 07:20 RBC 4.56 X10^6/uL (3.5-5.4) 06/03/17 07:20 Hgb 11.4 g/dL (12.0-16.0) L 06/03/17 07:20 Hct 35.0 % (36.0-47.0) L 06/03/17 07:20 MCV 76.6 fL (80.0-100.0) L 06/03/17 07:20 MCH 24.9 pg (27.0-34.0) L 06/03/17 07:20 MCHC 32.5 g/dL (33.0-35.0) L 06/03/17 07:20 RDW 17.5 % (11.6-16.5) H 06/03/17 07:20 Plt Count 323 X10^3/uL (150.0-450.0) 06/03/17 07:20 Plt Count Comment Adequate (ADEQUATE) 06/03/17 07:20 MPV 8.8 fL (7.4-11.0) 06/03/17 07:20 Neut % (Auto) 54.3 % (42.0-75.0) 06/03/17 07:20 Lymph % (Auto) 29.5 % (21.0-51.0) 06/03/17 07:20 [place] % (Auto) 10.5 % (0.0-13.0) 06/03/17 07:20 Eos % (Auto) 5.2 % (0.9-2.9) H 06/03/17 07:20 Baso % (Auto) 0.5 % (0.2-1.0) 06/03/17 07:20 Neut # (Auto) 8.4 x10^3/uL (2.2-4.8) H 06/03/17 07:20 Lymph # (Auto) 4.6 X10^3/uL (1.3-2.9) H 06/03/17 07:20 [place] # (Auto) 1.6 x10^3/uL (0.3-0.8) H 06/03/17 07:20 Eos # (Auto) 0.8 x10^3/uL (0.0-0.2) H 06/03/17 07:20 Baso # (Auto) 0.1 X10^3/uL (0.0-0.1) 06/03/17 07:20 Absolute Nucleated RBC 0.1 /100WBC 06/03/17 07:20 Plt Morphology Comment Normal (NORMAL) 06/03/17 07:20 RBC Morphology Abnormal (NORMAL) A 06/03/17 07:20 Hypochromasia Slight A 06/03/17 07:20 INR Target Range - 06/03/17 07:20 INR 1.23 (0.8-1.3) 06/03/17 07:20 APTT 28.1 SECONDS (22.9-36.5) 06/03/17 07:20 PTT Comment - 06/03/17 07:20 D-Dimer 2860 ng/mL (0-400) H* 06/03/17 07:20 Sample Site Rr 06/03/17 07:35 ABG pH 7.430 (7.35-7.45) 06/03/17 07:35 ABG pCO2 40.0 mmHg (35.0-45.0) 06/03/17 07:35 ABG pO2 46.0 mmHg (80.0-100.0) L* 06/03/17 07:35 ABG HCO3 26.5 mmol/L (22-26) H 06/03/17 07:35 ABG O2 Saturation 83.0 % (90-100) L* 06/03/17 07:35 ABG Base Excess 2.0 mmol/L (-2.0-2.0) 06/03/17 07:35 Rodney Test Pos 06/03/17 07:35 A-a Gradient 161.0 mmHg 06/03/17 07:35 FiO2 36.000 06/03/17 07:35 Blood Gas Comments Radha well lj 06/03/17 07:35 Sodium 141 mmol/L (136-145) 06/03/17 07:20 Corrected Sodium 143 mmol/L (136-145) 06/03/17 07:20 Potassium 3.8 mmol/L (3.5-5.1) 06/03/17 07:20 Chloride 101 mmol/L (98-107) 06/03/17 07:20 Carbon Dioxide 24.8 mmol/L (21-32) 06/03/17 07:20 BUN 59 mg/dL (7-18) H 06/03/17 07:20 Creatinine 5.10 mg/dL (0.55-1.02) H 06/03/17 07:20 Est GFR (MDRD) Af Amer 11 (>60) L 06/03/17 07:20 Est GFR (MDRD) Non-Af 9 (>60) L 06/03/17 07:20 Glucose 183 mg/dL (65-99) H 06/03/17 07:20 Lactic Acid 3.2 mmol/L (0.4-2.0) H 06/03/17 07:20 Calcium 8.4 mg/dL (8.5-10.1) L 06/03/17 07:20 Corrected Calcium 9.2 mg/dL (8.5-10.1) 06/03/17 07:20 Magnesium 2.1 mg/dL (1.7-2.9) 06/03/17 07:20 Total Bilirubin 0.30 mg/dL (0.2-1.0) 06/03/17 07:20 AST 22 Units/L (15-37) 06/03/17 07:20 ALT 18 Units/L (12-78) 06/03/17 07:20 Alkaline Phosphatase 95 Units/L (46-116) 06/03/17 07:20 Creatine Kinase 41 Units/L (26-192) 06/03/17 07:20 CK-MB (CK-2) < 1.0 ng/mL (0-4.0) 06/03/17 07:20 CK/CKMB % Calc 2.4 % (<4) 06/03/17 07:20 Troponin I 0.02 ng/mL (0-1.5) 06/03/17 07:20 C-Reactive Protein 13.70 mg/L (0-3.0) H 06/03/17 07:20 B-Natriuretic Peptide 1790 pg/mL (0-79) H* 06/03/17 07:20 Total Protein 7.7 g/dL (6.4-8.2) 06/03/17 07:20 Albumin 3.0 g/dL (3.4-5.0) L 06/03/17 07:20 Globulin 4.7 g/dL (2.5-4.5) H 06/03/17 07:20 Albumin/Globulin Ratio 0.6 Ratio (1.1-2.1) L 06/03/17 07:20 Specimen Type Catherized urine 06/03/17 07:54 Urine Color Yellow (YELLOW) 06/03/17 07:54 Urine Appearance Cloudy (CLEAR) 06/03/17 07:54 Urine pH 6.0 (5.0 - 8.0) 06/03/17 07:54 Ur Specific [place] 1.015 (1.000-1.030) 06/03/17 07:54 Urine Protein 3+ (NEGATIVE) 06/03/17 07:54 Urine Glucose (UA) Negative (NEGATIVE) 06/03/17 07:54 Urine Ketones Negative (NEGATIVE) 06/03/17 07:54 Urine Occult Blood 5+ (NEGATIVE) 06/03/17 07:54 Urine Nitrite Negative (NEGATIVE) 06/03/17 07:54 Urine Bilirubin Negative (NEGATIVE) 06/03/17 07:54 Urine Urobilinogen Normal (NORMAL) 06/03/17 07:54 Ur Leukocyte Esterase 3+ (NEGATIVE) 06/03/17 07:54 Urine RBC 10-20 /HPF (NONE SEEN) 06/03/17 07:54 Urine WBC Tntc /HPF (NONE SEEN) 06/03/17 07:54 Ur Squamous Epith Cells Moderate /HPF (NEGATIVE) 06/03/17 07:54 Amorphous Sediment Trace /HPF (NEGATIVE) 06/03/17 07:54 Urine Bacteria Trace /HPF (NEGATIVE) 06/03/17 07:54 Ur Culture Indicated? Yes/culture set up 06/03/17 07:54 - XRAY XRAY Interpreted by: Radiologist (Chest: There is cardiomegaly with increased interstitial markings. Dual-lumen catheter tips project over the SVC Sternotomy change noted. More patchy focal right perihilar opacity noted. No pneumothorax or effusion seen. Impression: Cardiomegaly and pulmonary edema suggesting CJF, Developing right lung pneumonia possible.) - Diagnosis Discharge Problem: Respiratory distress, Renal failure Right middle lobe pneumonia Qualifiers: Pneumonia type: due to unspecified organism Qualified Code(s): J18.1 - Lobar pneumonia, unspecified organism - Discharge Plan Condition: Stable - Follow ups/Referrals Follow ups/Referrals: Markell RAMIREZ [Primary Care Provider] - 3 days - Instructions
[2017-06-03 07:40] LABS: HYPOCHROMASIA SLIGHT; PLATELET MORPHOLOGY COMMENT NORMAL (NORMAL)
[2017-06-03 07:41] LABS: ABG HCO3 26.5 mmol/L (22-26)
[2017-06-03 07:42] LABS: ABG ALLEN TEST POS
[2017-06-03 07:55] LABS: B-TYPE NATRIURETIC PEPTIDE 1790 pg/mL (0-79)
--- NOTE | 2017-06-03 07:58 | RAD ---
Chest AP portable Indication: Chest pain and dyspnea Comparison: 05/15/2017 Findings: There is cardiomegaly with increased interstitial markings. Dual-lumen catheter tips projec t over the SVC. Sternotomy change noted. More patchy focal right perihilar opacity noted. No pneumoth orax or effusion seen. Impression: Cardiomegaly and pulmonary edema suggesting CHF. Developing right lung pneumonia possible . Follow-up to resolution. Reported By:
[2017-06-03] MEDS ORDERED: LASIX IVP ONE ×2 (08:02→08:05)
[2017-06-03 08:09] LABS: BILIRUBIN,URINE NEGATIVE (NEGATIVE); BLOOD/HEMOGLOBIN,URINE 5+ (NEGATIVE); GLUCOSE, URINE NEGATIVE (NEGATIVE); KETONES,URINE NEGATIVE (NEGATIVE); LEUKOCYTE ESTERASE ,URINE 3+ (NEGATIVE); NITRITES,URINE NEGATIVE (NEGATIVE); PROTEIN,URINE 3+ (NEGATIVE); UROBILINOGEN,URINE NORMAL (NORMAL)
[2017-06-03 08:13] LABS: ALANINE AMINOTRANSFERASE 18 Units/L (12-78); ALKALINE PHOSPHATASE 95 Units/L (46-116); ASPARTATE AMINO TRANSFERASE 22 Units/L (15-37); BLOOD UREA NITROGEN 59 mg/dL (7-18); CALCIUM 8.4 mg/dL (8.5-10.1); CARBON DIOXIDE 24.8 mmol/L (21-32); CHLORIDE 101 mmol/L (98-107); CKMB % 2.4 % (<4); COR CA(FOR HYPOALB) 9.2 mg/dL (8.5-10.1); COR NA(FOR HYPERGLY) 143 mmol/L (136-145); CREATINE KINASE 41 Units/L (26-192); CREATINE KINASE MB < 1.0 ng/mL (0-4.0); MAGNESIUM 2.1 mg/dL (1.7-2.9); SODIUM 141 mmol/L (136-145); TOTAL PROTEIN 7.7 g/dL (6.4-8.2); TROPONIN I 0.02 ng/mL (0-1.5); eGFR BLACK RACES 11 (>60); eGFR NON BLACK RACES 9 (>60)
[2017-06-03 08:17] LABS: APPEARANCE,URINE CLOUDY (CLEAR); COLOR,URINE YELLOW (YELLOW)
[2017-06-03 08:18] LABS: AMORPHOUS SEDIMENT,UR TRACE /HPF (NEGATIVE); BACTERIA,URINE TRACE /HPF (NEGATIVE); SQUAMOUS EPITHELIAL CELL,UR MODERATE /HPF (NEGATIVE)
[2017-06-03] MEDS ORDERED: NS 100 ML IV + SPIKE MINIBAG* 100 ML IV ONE (08:21)
[2017-06-03] MEDS ORDERED: ZOSYN VIAL 3.375 GM IV ONE (08:21)
[2017-06-03 08:42] VITALS: BP 97/74
[2017-06-03] MEDS ORDERED: ZOSYN VIAL 3.375 GM 3.375 GM in NS 100 ML IV + SPIKE MINIBAG* 100 ML IV SCH (09:00)
== END 2017-06-03 08:57 | disposition short-term general hospital (02) ==
LOC: ER 06:54
DX: R06.03 Acute respiratory distress (principal); N19 Unspecified kidney failure; J18.1 Lobar pneumonia, unspecified organism; R06.02 Shortness of breath; R94.31 Abnormal electrocardiogram [ECG] [EKG]; I51.7 Cardiomegaly; B95.61 Methicillin susceptible Staphylococcus aureus infection as the cause of diseases classified elsewhere; R79.1 Abnormal coagulation profile
CPT/HCPCS: 36415; 36600; 51702; 71045; 80053; 81001; 82550; 82553; 82803; 83605; 83735; 83880; 84484; 85025; 85378; 85610; 85730; 86140; 87040; 87086; 87088; 87186; 93005; 93010; 96374; 96375; 99284; 99285; A4222; A4618; A7030; J1940; J2543